=== PATIENT | female | born 1980 | race Hispanic/Latino ===

== ENCOUNTER 2018-01-05 08:44 | Day surgery (SDC) | payer OTHER, MEDICAID, SELFPAY ==
[2018-01-05] VITALS (17 sets, daily range): BP systolic 95–156; BP diastolic 36–99; PULSE 57–87; RESP 14–22; TEMP 36–37; O2SAT 94–100; BMI 37.5
--- NOTE | 2018-01-05 | PATH_ITS ---
[facility] Accession Number: [id number] . 01 Material submitted: . GALLBLADDER WITH CONTENTS . 02 Diagnosis: Gallbladder, Cholecystectomy: Chronic active cholecystitis with cholelithiasis. Two benign cystic duct lymph nodes. No evidence of dysplasia or malignancy. I/01/09/2018 . 02 Electronically signed: . Nan Sanches MD, Pathologist NPI- [id number] . 01 Gross description: . Received in formalin, labeled gallbladder with contents, is an intact gallbladder (length-14.2 cm, diameter-2.7 cm) with ansari-pink, smooth, shiny serosa and a patent cystic duct. Two possible lymph nodes (0.7 x 0.5 x 0.4 cm and 1.3 x 1.2 x 0.6 cm) are identified. The lumen contains brown, gelatinous material and multiple ansari-yellow and green, solid, firm, gritty calculi (6.6 x 1.8 x 1.8 cm in aggregate, ranging 1.8 x 1.5 x 1.3 cm - 2.8 x 2.7 x 2.4 cm) with ella crystalline cut surfaces. The mucosa is ansari, smooth and flat. The wall is up to 0.2 cm thick. No nodules, masses or lesions are identified. Section code: (A1) cystic duct resection margin and two serial sections from the body; (A2) two longitudinal sections from the fundus; (A3, A4) one bisected lymph node in each cassette. ([id number]) /MRV . 02 Pathologist provided ICD-10: K81.2 . 02 CPT . 638127 Performed at: [address] [id number] MD Randal Porter MD Phone: [phone] Performed at: 02 [facility] [id number] [place] [id number] MD Bryce Hayes MD Phone: [phone]
[2018-01-05] MEDS: HYDROMORPHONE 1 MG INJ IV ×2 (09:13→10:02)
[2018-01-05] MEDS: ONDANSETRON 4 MG/2 ML INJ IV ×3 (09:13→17:11)
[2018-01-05] MEDS: SODIUM CHLORIDE 0.9% 1,000 ML 1000 ML IV (09:15)
[2018-01-05 09:20] LABS: Bacteria Urine Few (2-10); Culture Indicated Urine Cult Not Indicated; Hyaline Casts Urine 0-1/LPF; Mucus Urine 1+ (Negative); RBC Urine 0-1/HPF (0-5/HPF); Squamous Epithelial Cell Urine 1-5 /HPF; WBC Urine 0-1/HPF (0-5/HPF)
[2018-01-05 09:21] LABS: Add Manual Diff / Slide Review NO; Basophils Percent Auto 0.5 % (0-2); Eosinophils Percent Auto 0.4 % (2-4); Hematocrit 43.4 % (36-46); Hemoglobin 14.3 g/dL (12.0-16.0); Lymphocytes Percent Auto 10.4 % (25-40); Mean Corpuscular HGB Conc 32.9 % (30-36); Mean Corpuscular Hemoglobin 26.1 PG (26-34); Mean Corpuscular Volume 79.3 fL (80-100); Monocytes Percent Auto 3.2 % (3-14); Neutrophils Absolute Auto 15100 /uL (3000-5900); Neutrophils Percent Auto 85.5 % (50-75); Platelet Count 399 X10^3/uL (150-400); Red Blood Cell Count 5.47 X10^6/uL (4.0-5.2); Red Cell Distribution Width 14.2 % (11.6-14.8); White Blood Cell Count 17.6 X10^3/uL (4.5-11.0)
--- NOTE | 2018-01-05 09:26 | DI.US.S_ITS ---
PROCEDURE: US ABDOMEN COMPLETE INDICATIONS: PAIN TECHNIQUE: Real-time scanning was performed of the abdominal and retroperitoneal organs, with image documentation. COMPARISON: [facility], CT, IVP (ABD & PEL WWO CONTRAST), 11/27/2013, 14:29. [facility], US, ABDOMEN COMPLETE, 09/29/2015, 7:36. FINDINGS: Liver: Liver is normal in size and diffusely increased echotexture. Gallbladder: There are gallstones. A 2.3 cm gallstone is lodged in the gallbladder neck. No gallbladder wall thickening, pericholecystic fluid or sonographic Hayes's sign. Biliary ducts: Intrahepatic bile ducts are non-dilated. Extrahepatic bile duct caliber measures 5.3 mm. Normal is 6-7 mm or less in diameter, or 10 mm or less post-cholecystectomy. Pancreas: Visualized portions of the pancreas are sonographically normal. Spleen: Spleen is normal in size and homogeneous in echotexture. Kidneys: Kidneys are normal in size and echotexture. Right kidney measures 10.6 cm long; left kidney measures 11.6 cm long. No hydronephrosis or nephrolithiasis. No solid masses. Aorta: Visualized aorta is normal in caliber at less than 3 cm. Iliacs: Proximal common iliac arteries are normal in caliber at less than 2.5 cm. IVC: Intrahepatic inferior vena cava is patent. Miscellaneous: No free abdominal fluid. IMPRESSION: 1. Cholelithiasis. A 2.3 cm gallstone is lodged in the gallbladder neck. No gallbladder wall thickening, pericholecystic fluid collection or sonographic Hayes's sign. 2. Diffusely increased hepatic echotexture. This finding is most likely secondary to hepatic fatty infiltration although other hepatocellular disease may have a similar appearance. Recommend clinical correlation. Dictated by: Nikita Green M.D. on 01/05/2018 at 10:28 Approved by: Nikita Green M.D. on 01/05/2018 at 11:01
[2018-01-05 09:28] LABS: INR 1.1 (0.9-1.3); Prothrombin Time 11.7 SECONDS (10.1-12.7)
[2018-01-05 09:31] LABS: PTT Partial Thromboplastin Tim 30 SECONDS (26.4-36.2)
[2018-01-05 09:33] LABS: Alanine Aminotransferase 36 IU/L (9-52); Albumin 4.7 g/dL (3.5-5.0); Albumin Globulin Ratio 1.3 (1.0-2.8); Alkaline Phosphatase 93 U/L (38-126); Aspartate Aminotransferase 23 IU/L (14-36); BUN Creatinine Ratio 13.3 (6-22); Bilirubin Total 0.6 mg/dL (0.2-1.3); Blood Urea Nitrogen 8 mg/dL (7-17); Calcium 9.8 mg/dL (8.4-10.2); Carbon Dioxide 25 mmol/L (22-32); Chloride 99 mmol/L (98-107); Estimated Glomerular Filt Rate > 60.0 mL/min (>60); Globulin 3.7 g/dL (1.7-4.1); Glucose 225 mg/dL (70-100); HEMOLYSIS < 15 (0-50); Lipase 66 U/L (23-300); Potassium 4.2 mmol/L (3.4-5.1); Sodium 137 mmol/L (137-145); Total Protein 8.4 g/dL (6.3-8.2)
--- NOTE | 2018-01-05 10:21 | ED_ITS ---
HPI - Abdominal Pain General Chief Complaint: Abdominal Pain Stated Complaint: ABDOMINAL PAIN RUNNING UP TO CHEST Time Seen by Provider: 01/05/18 08:48 History of Present Illness HPI narrative: HPI 37-year-old obese female presents for evaluation of epigastric and right upper quadrant pain that is been present since yesterday evening, a company by anorexia and mild nausea. Denies chest pain, shortness breath, dysuria, urinary frequency, vaginal discharge or discomfort, continues pass flatus and stool, denies prior abdominal surgeries, unable to identify any further provoking or relieving factors. No fevers or chills. M/S/F/SocHx notable for: please see HPI; remainder reviewed with patient and in chart. ROS: Negative constitutional, eye, cardiovascular, pulmonary, GI, , MSK, skin , neurologic, psychiatric, endocrine unless noted in the HPI. Exam HR 74, BP 139/89, RR 14, T 97.7 ?F, SaO2 99 % on room air. Gen: pleasant, nontoxic-appearing, resting in mild discomfort, ambulatory with a normal narrow based nonantalgic gait. HEENT: NC, AT, PEERL, EOMI. Resp: Clear to auscultation bilaterally, normal work of breathing. Card: Regular rate and rhythm with no murmurs rubs or gallops, extremities warm and well perfused. GI: ND, moderate RUQ TTP, mild epigastric TTP, remainder of abdomen non-tender to palpation, positive Hayes's sign, no rebound or guarding. : no suprapubic tenderness to palpation. MSK: No visible deformities, strength and tone WNL. Skin: Normal color with no visible lesions. Neuro: AO x 3, no facial asymmetry, vision and hearing WNL. Psych: Mood and affect appropriate. Labs / Imaging (pertinent): WBC 17.6, Hb 14.3, Na 137, K 4.2, total bilirubin 0.6, AST 23, ALT 36, ALP 93, lipase 66. US RUQ: cholelithiasis without evidence of cholecystitis. Radiologist read pending. MDM Previous chart, nursing note, and vitals reviewed. A: 37-year-old obese female presents for evaluation of epigastric and right upper quadrant pain that is been present since yesterday evening, a company by anorexia and mild nausea. DDx: Biliary disease (cholecystitis, cholelithiasis, choledocholithiasis, biliary colic), pancreatitis, appendicitis, ureterolithiasis, peptic ulcer disease, GERD, ACS, PE. Evaluation: patient with elevated white blood cell count, normal bilirubin, alkaline phosphatase, normal lipase, and normal liver enzymes. Ultrasound concerning for cholelithiasis without clear evidence of cholecystitis ( radiologist report pending). Discuss case with the general surgeon occupational safety and health manager, Dr. Adamson, patient admitted for further care. CORRESPONDENCE SECTION SUPERVISOR requested and ordered, no further interventions requested. ED Course: 1 L NS, Zofran, and 1mg hydromorphone given for symptom control. Patient required repeat dose of 1mg hydromorphone and Zofran for symptom control. Impression: cholelithiasis, leukocytosis. Related Data Home Medications Medication Instructions Recorded Confirmed buspirone 10 mg PO BID PRN 01/05/18 01/05/18 glipizide 10 mg PO BID 01/05/18 01/05/18 liraglutide [Victoza 2-Heri] 1.2 mg SUB-Q DAILY 01/05/18 01/05/18 Previous Rx's Medication Instructions Recorded paroxetine HCl [Paxil] 40 mg PO QDAY #30 tab 01/25/16 Allergies Allergy/AdvReac Type Severity Reaction Status Date / Time meperidine [From DEMEROL] AdvReac Unknown SEVERE Verified 01/05/18 08:51 NAUSEA PFSH Surgical History Status post delivery Social History Smoking Status: Never smoker Exam Initial Vital Signs Initial Vital Signs: Vital Signs Temperature 97.7 F 01/05/18 08:49 Pulse Rate 74 01/05/18 08:49 Respiratory Rate 14 01/05/18 08:49 Blood Pressure 139/89 H 01/05/18 08:49 Pulse Oximetry 99 01/05/18 08:49 Course Orders Ordered: ED Orders 01/05/18 09:00 Complete Blood Count AUTO DIFF Stat Comprehensive Metabolic Panel Stat Lipase Stat Partial Thromboplastin Time Stat Prothrombin Time INR Stat 01/05/18 09:02 Urine Microscopic Stat 01/05/18 09:26 US abdomen complete Stat Discontinued Medications Hydromorphone HCl (Dilaudid) 1 mg IV NOW ONE Stop: 01/05/18 09:03 Last Admin: 01/05/18 09:13 Dose: 1 mg Hydromorphone HCl (Dilaudid) 1 mg IV NOW ONE Stop: 01/05/18 10:02 Last Admin: 01/05/18 10:02 Dose: 1 mg Hydromorphone HCl (Dilaudid) 1 mg IV NOW ONE Stop: 01/05/18 10:09 Sodium Chloride (Normal Saline 0.9%) 1,000 mls @ 1,000 mls/hr IV BOLUS ONE Stop: 01/05/18 10:13 Last Admin: 01/05/18 09:15 Dose: 1,000 mls/hr Ondansetron HCl (Zofran) 4 mg IV NOW ONE Stop: 01/05/18 09:03 Last Admin: 01/05/18 09:13 Dose: 4 mg Ondansetron HCl (Zofran) 4 mg IV NOW ONE Stop: 01/05/18 10:06 Last Admin: 01/05/18 10:05 Dose: 4 mg Ondansetron HCl (Zofran) 4 mg IV NOW ONE Stop: 01/05/18 10:09 Vital Signs - 8 hr 01/05/18 08:49 01/05/18 10:07 Temperature 97.7 F Pulse Rate 74 70 Respiratory Rate 14 14 Blood Pressure 139/89 H Blood Pressure [Left Arm] 146/99 H Pulse Oximetry 99 100 MDM - Abdominal Pain Lab Data Result diagrams: 01/05/18 09:00 01/05/18 09:00 Lab Results 01/05/18 01/05/18 01/05/18 Range/Units 09:00 09:00 09:00 WBC 17.6 H (4.5-11.0) X10^3/uL RBC 5.47 H (4.0-5.2) X10^6/uL Hgb 14.3 (12.0-16.0) g/dL Hct 43.4 (36-46) % MCV 79.3 L (80-100) fL MCH 26.1 (26-34) PG MCHC 32.9 (30-36) % RDW 14.2 (11.6-14.8) % Plt Count 399 (150-400) X10^3/uL Neut % (Auto) 85.5 H (50-75) % Lymph % (Auto) 10.4 L (25-40) % [place] % (Auto) 3.2 (3-14) % Eos % (Auto) 0.4 L (2-4) % Baso % (Auto) 0.5 (0-2) % Neut # (Auto) 19109 H (2367-6770) /uL PT 11.7 (10.1-12.7) SECONDS INR 1.1 (0.9-1.3) APTT 30 (26.4-36.2) SECONDS Sodium 137 (137-145) mmol/L Potassium 4.2 (3.4-5.1) mmol/L Chloride 99 (98-107) mmol/L Carbon Dioxide 25 (22-32) mmol/L BUN 8 (7-17) mg/dL Creatinine 0.60 (0.52-1.04) mg/dL Estimated GFR > 60.0 (>60) mL/min BUN/Creatinine Ratio 13.3 (6-22) Glucose 225 H (70-100) mg/dL Calcium 9.8 (8.4-10.2) mg/dL Total Bilirubin 0.6 (0.2-1.3) mg/dL AST 23 (14-36) IU/L ALT 36 (9-52) IU/L Alkaline Phosphatase 93 (38-126) U/L Total Protein 8.4 H (6.3-8.2) g/dL Albumin 4.7 (3.5-5.0) g/dL Globulin 3.7 (1.7-4.1) g/dL Albumin/Globulin Ratio 1.3 (1.0-2.8) Lipase 66 (23-300) U/L Urine RBC (0-5/HPF) Urine WBC (0-5/HPF) Ur Squamous Epith Cells Urine Bacteria (None) Hyaline Casts (None) Urine Mucus (Negative) Ur Culture Indicated? Micro UA Comment 01/05/18 Range/Units 09:02 WBC (4.5-11.0) X10^3/uL RBC (4.0-5.2) X10^6/uL Hgb (12.0-16.0) g/dL Hct (36-46) % MCV (80-100) fL MCH (26-34) PG MCHC (30-36) % RDW (11.6-14.8) % Plt Count (150-400) X10^3/uL Neut % (Auto) (50-75) % Lymph % (Auto) (25-40) % [place] % (Auto) (3-14) % Eos % (Auto) (2-4) % Baso % (Auto) (0-2) % Neut # (Auto) (2242-1175) /uL PT (10.1-12.7) SECONDS INR (0.9-1.3) APTT (26.4-36.2) SECONDS Sodium (137-145) mmol/L Potassium (3.4-5.1) mmol/L Chloride (98-107) mmol/L Carbon Dioxide (22-32) mmol/L BUN (7-17) mg/dL Creatinine (0.52-1.04) mg/dL Estimated GFR (>60) mL/min BUN/Creatinine Ratio (6-22) Glucose (70-100) mg/dL Calcium (8.4-10.2) mg/dL Total Bilirubin (0.2-1.3) mg/dL AST (14-36) IU/L ALT (9-52) IU/L Alkaline Phosphatase (38-126) U/L Total Protein (6.3-8.2) g/dL Albumin (3.5-5.0) g/dL Globulin (1.7-4.1) g/dL Albumin/Globulin Ratio (1.0-2.8) Lipase (23-300) U/L Urine RBC 0-1/hpf (0-5/HPF) Urine WBC 0-1/hpf (0-5/HPF) Ur Squamous Epith Cells 1-5 /hpf Urine Bacteria Few (2-10) H (None) Hyaline Casts 0-1/lpf (None) Urine Mucus 1+ H (Negative) Ur Culture Indicated? Cult not indicated Micro UA Comment Not Reportable Point of care testing: Point of Care Testing Test Results Negative Urine Dip Bedside Urine Glucose Negative Bedside Urine Bilirubin - Negative Bedside Urine Ketone + 15 Urine Specific [place] 1.020 Bedside Urine Occult Blood - Negative Bedside Urine pH 7.0 Bedside Urine Protein + 30 Bedside Urine Urobilinogen - Negative Bedside Urine Nitrite - Negative Bedside Urine Leukocytes - Negative Esterase Discharge Plan Departure Prescriptions: No Action paroxetine HCl [Paxil] 40 MG tablet 40 mg PO QDAY Qty: 30 RF: 0 buspirone 10 mg tablet 10 mg PO BID PRN (Reason: Anxiety) RF: 0 liraglutide [Victoza 2-Heri] 0.6 mg/0.1 mL (18 mg/3 mL) pen injector 1.2 mg Sub-Q DAILY RF: 0 glipizide 10 mg tablet 10 mg PO BID RF: 0
--- NOTE | 2018-01-05 11:23 | PC.NURSE ---
Day shift: Arrived on unit from ED at approx 1050. Presented to be in pain and uncomfortable. Set up CREAM HAULER first thing as SECONDARY SCHOOL PRINCIPAL and other RN got Pt settled. After CREAM HAULER started Pt more relaxed and comfortable. Pt states that pain is well controlled. Oriented to room and call light. Call light in reach. Questions answered. Will continue to monitor. VS ok. RA 99%. Denies any chest pain.
[2018-01-05] MEDS: SODIUM CHLORIDE 0.9% 1,000 ML 100 ML IV (12:07)
--- NOTE | 2018-01-05 12:51 | PC.NURSE ---
Day shift: Call from Dr Adamson as follows: Make Pt strict NPO now and surgery likely today at 1500. Call light in reach.
[2018-01-05] MEDS: LORazepam 2 MG/ML SYRINGE 1 MG IV (14:10)
[2018-01-05] MEDS: HYDROMORPHONE PCA 6 MG/30 ML PCA.VIAL IV (14:12)
--- NOTE | 2018-01-05 14:14 | PM.HP.1 ---
History of Present Illness Date Patient Seen: 01/05/18 Time Patient Seen: 14:14 Chief complaint: ABDOMINAL PAIN RUNNING UP TO CHEST Narrative: Pleasant and uncomfortable 37-year-old lady who presented to the emergency room with a little less than 24 hr of worsening right upper quadrant abdominal pain. This has been accompanied by anorexia and nausea. The patient denies any yellowing skin or fever. She continues to pass flatus and have stool. She has had some episodes of right upper quadrant pain in the past but nothing this severe. She reports that she has a nearly daily diarrhea related to heard antidiabetic medications. Patient History Surgical History Status post delivery Family & Social History Family History: Reviewed 01/05/18 by Georgia Adamson MD Social History: household members family Safety & Behavioral: Feels Safe in Current Yes Environment Been Physically Hurt or No Threatened By a Person Suicidal Ideation Description None Suicide Plan Description No Plan Tobacco & Substance use: Smoking Status Never smoker alcohol intake frequency 0-2 drinks per day Substance Use Type marijuana Meds Home Medications Medication Instructions Recorded Confirmed Type paroxetine HCl [Paxil] 40 mg PO QDAY #30 tab 01/25/16 01/05/18 Rx buspirone 10 mg PO BID PRN 01/05/18 01/05/18 History glipizide 10 mg PO BID 01/05/18 01/05/18 History liraglutide [Victoza 2-Heri] 1.2 mg SUB-Q DAILY 01/05/18 01/05/18 History Allergies Allergy/AdvReac Type Severity Reaction Status Date / Time meperidine [From DEMEROL] AdvReac Unknown SEVERE Verified 01/05/18 08:51 NAUSEA Review of Systems Review of Systems She complains of anxiety and beyond that the remainder of the 13 system review is negative with the exception of what has already been mentioned in the history of present illness Exam Vital Signs (past 8 hours): - 01/05/18 08:49 01/05/18 10:07 01/05/18 10:30 Temperature 97.7 F Pulse Rate 74 70 62 Respiratory Rate 14 14 Blood Pressure 139/89 H Blood Pressure [Left Arm] 146/99 H 149/88 H Pulse Oximetry 99 100 99 01/05/18 11:00 Temperature 97.7 F Pulse Rate 66 Respiratory Rate 16 Blood Pressure 140/77 H Blood Pressure [Left Arm] Pulse Oximetry 100 Oxygen Delivery Method Room Air Narrative Exam Narrative: Pleasant an uncomfortable appearing lady who is in obvious physical distress. HEENT: Normocephalic and atraumatic, pupils equal round reactive to light accommodation with anicteric sclera Lungs: Clear to auscultation bilaterally Heart: Regular rate and rhythm without murmur rub or gallop Abdomen: Soft, For Family tender to palpation in the right upper quadrant with voluntary guarding and some rebound. Extremities: Warm and well perfused without gross evidence of ischemia or tissue loss. Objective Labs Result Diagrams: 01/05/18 09:00 01/05/18 09:00 Labs: Laboratory Results - last 24 hr 01/05/18 01/05/18 01/05/18 09:00 09:00 09:00 WBC 17.6 H RBC 5.47 H Hgb 14.3 Hct 43.4 MCV 79.3 L MCH 26.1 MCHC 32.9 RDW 14.2 Plt Count 399 Neut % (Auto) 85.5 H Lymph % (Auto) 10.4 L [place] % (Auto) 3.2 Eos % (Auto) 0.4 L Baso % (Auto) 0.5 Neut # (Auto) 01570 H PT 11.7 INR 1.1 APTT 30 Sodium 137 Potassium 4.2 Chloride 99 Carbon Dioxide 25 BUN 8 Creatinine 0.60 Estimated GFR > 60.0 BUN/Creatinine Ratio 13.3 Glucose 225 H Calcium 9.8 Total Bilirubin 0.6 AST 23 ALT 36 Alkaline Phosphatase 93 Total Protein 8.4 H Albumin 4.7 Globulin 3.7 Albumin/Globulin Ratio 1.3 Lipase 66 Urine RBC Urine WBC Ur Squamous Epith Cells Urine Bacteria Hyaline Casts Urine Mucus Ur Culture Indicated? Micro UA Comment 01/05/18 09:02 WBC RBC Hgb Hct MCV MCH MCHC RDW Plt Count Neut % (Auto) Lymph % (Auto) [place] % (Auto) Eos % (Auto) Baso % (Auto) Neut # (Auto) PT INR APTT Sodium Potassium Chloride Carbon Dioxide BUN Creatinine Estimated GFR BUN/Creatinine Ratio Glucose Calcium Total Bilirubin AST ALT Alkaline Phosphatase Total Protein Albumin Globulin Albumin/Globulin Ratio Lipase Urine RBC 0-1/hpf Urine WBC 0-1/hpf Ur Squamous Epith Cells 1-5 /hpf Urine Bacteria Few (2-10) H Hyaline Casts 0-1/lpf Urine Mucus 1+ H Ur Culture Indicated? Cult not indicated Micro UA Comment Not Reportable [address] [address] Ultrasound Report Signed Patient: Lalitha Renteria MR#: [id number] : 1980 Acct:[id number] Age/Sex: 37 / F Date of Service: 01/05/18 Loc: 209-1 Accession Number: [id number] Procedure: US abdomen complete Ordering Provider: Rafael Herrera M.D. PROCEDURE: US ABDOMEN COMPLETE INDICATIONS: PAIN TECHNIQUE: Real-time scanning was performed of the abdominal and retroperitoneal organs, with image documentation. COMPARISON: [facility], CT, IVP (ABD & PEL WWO CONTRAST), 11/27/2013, 14:29. [facility], [place], ABDOMEN COMPLETE, 09/29/2015, 7:36. FINDINGS: Liver: Liver is normal in size and diffusely increased echotexture. Gallbladder: There are gallstones. A 2.3 cm gallstone is lodged in the gallbladder neck. No gallbladder wall thickening, pericholecystic fluid or sonographic Hayes's sign. Biliary ducts: Intrahepatic bile ducts are non-dilated. Extrahepatic bile duct caliber measures 5.3 mm. Normal is 6-7 mm or less in diameter, or 10 mm or less post-cholecystectomy. Pancreas: Visualized portions of the pancreas are sonographically normal. Spleen: Spleen is normal in size and homogeneous in echotexture. Kidneys: Kidneys are normal in size and echotexture. Right kidney measures 10.6 cm long; left kidney measures 11.6 cm long. No hydronephrosis or nephrolithiasis. No solid masses. Aorta: Visualized aorta is normal in caliber at less than 3 cm. Iliacs: Proximal common iliac arteries are normal in caliber at less than 2.5 cm. IVC: Intrahepatic inferior vena cava is patent. Miscellaneous: No free abdominal fluid. IMPRESSION: 1. Cholelithiasis. A 2.3 cm gallstone is lodged in the gallbladder neck. No gallbladder wall thickening, pericholecystic fluid collection or sonographic Hayes's sign. 2. Diffusely increased hepatic echotexture. This finding is most likely secondary to hepatic fatty infiltration although other hepatocellular disease may have a similar appearance. Recommend clinical correlation. Dictated by: Nikita Green M.D. on 01/05/2018 at 10:28 Approved by: Nikita Green M.D. on 01/05/2018 at 11:01 Assessment & Plan Plan: Assessment/Plan Narrative: Cholelithiasis and early acute cholecystitis in the setting of a pleasant 37-year-old lady with type 2 diabetes. We discussed the risks and benefits of laparoscopic cholecystectomy and patient expressed desire to have the procedure. Quality VTE Deep Vein Thrombosis/Pulmonary Embolism Present on Admission: No
--- NOTE | 2018-01-05 15:06 | PC.NURSE ---
Day shift: Left unit for procedure at approx 1510 in AC bed w/ surgery personal.
[2018-01-05] MEDS: AMPICILLIN/SULBACTAM 3 GM 3 GM in SODIUM CHLORIDE 0.9% 100 ML IV ×2 (15:40→18:48)
--- NOTE | 2018-01-05 16:15 | SUR.OPER ---
Supine on padded OR bed, head on pillow, safety belt at thigh, left arm padded and tucked at side. Right arm secured on padded arm oard <90 degrees abduction. Legs uncrossed. Padded footboard in place. Tape over blanket to secure lower legs.
[2018-01-05] MEDS: LIDOCAINE 1% W/EPI INJ 20 ML INJ (16:25)
[2018-01-05] MEDS: BUPIVACAINE 0.5% (PF) VIAL 30 ML INJ (16:25)
[2018-01-05] MEDS: LACTATED RINGERS 1,000 ML 42 ML IV (16:29)
[2018-01-05] MEDS: HYDROMORPHONE 2 MG INJ 0.5 MG IV ×3 (17:09→17:20)
[2018-01-05] MEDS: METOCLOPRAMIDE 10 MG/2 ML INJ IV (17:14)
--- NOTE | 2018-01-05 18:00 | PM.OP.1 ---
Operative Date/Time/Diagnoses Date of procedure: 01/05/18 Time of procedure: 18:01 Pre-op diagnosis: Acute cholecystitis and cholelithiasis Post-op diagnosis: same Procedure & Clinicians Procedure: Laparoscopic cholecystectomy Same procedure as scheduled: Yes Surgeon: Georgia Adamson Click Yes if Unassisted: Yes Anesthesia Type: General (Ahsaei) Operative Notes Findings: Acute cholecystitis and hydrops of the gallbladder Closure Type: primary Specimen(s): other (Gallbladder in formalin to pathology) Estimated Blood Loss (mL): 50 Procedure in detail: After obtaining informed consent, the patient was brought to the operating room and placed in the supine position on the operating table. Following successful induction of general endotracheal anesthesia, appropriate padding of all bony prominences, and placement of appropriate monitors, the abdomen was prepped and draped in a standard surgical fashion. A timeout was held per WIOAP protocol. Following infiltration with local anesthetic to create a field block, an incision was created superior to the umbilicus and carried down through the skin and subcutaneous tissue to reveal the fascia below. 2-0 Vicryl retention sutures are placed on either side of the midline and the abdomen was entered under direct vision using a 15 blade scalpel. A 10 mm blunt trocar was placed in the abdominal cavity and it was insufflated to 15 mm of Hg pressure. The patient was placed in reverse Trendelenburg position with the left side rotated toward the floor. A second 5 mm trocar was placed in the midepigastrium and 2 more in the right upper quadrant, again after infiltration with local anesthetic and under direct vision with the camera. The gallbladder was grasped in the fundus and elevated up over the liver. This revealed the cholecysto-hepatoduodenal ligament. The cystic duct and artery were carefully identified with gentle dissection. As we were able to clearly see the structures as well as the junction with the common duct; we elected not to perform a cholangiogram. 3 clips were placed proximally on the cystic duct and one distally. The duct was divided between these clips. 2 clips were placed proximally on the cystic artery and one distally. The artery was divided between these clips. The gallbladder was then liberated from its bed in the liver using Bovie cautery. It was placed in an Endoscopic bag and removed via the umbilical port. The camera was returned to the abdominal cavity and the operative site examined carefully. Hemostasis was obtained with cautery. The abdomen was irrigated copiously with warm saline solution and then aspirated free of all particulate matter and fluid. Trochars were then removed under direct vision and the abdomen desufflated by giving the patient a Valsalva maneuver. The umbilical incision was closed with interrupted Vicryl suture and Monocryl sutures were placed in the skin. The remaining skin incisions were closed with Monocryl suture. All sponge, needle, and instrument counts were correct at the conclusion of the case. The patient was allowed to awaken from anesthesia without difficulty and taken to the post anesthesia care unit in good condition. Complications: none Condition: stable Disposition: PACU Plan for aftercare: 1. Return to acute care for continued convalescence 2. Continue antibiotics
--- NOTE | 2018-01-05 18:31 | PC.NURSE ---
Federica shift note: Patient return to AC from recovery S/P lap Cholecystectomy in stable condition. Patient awake, alert and talkative. Abdominal incisions x 4 to right upper abdomen (2), umbilicus, and above umbilicus. Well approximated secured with Dermabond. BS hypoactive, abdomen round. No c/o nausea or vomiting. Tolerating PO intake. VSS and afebrile upon return. Family at bedside providing supportive care. SCD in place. Call light within reach, updated regarding plan of care.
[2018-01-05] MEDS: LACTATED RINGERS 1,000 ML 100 ML IV (18:46)
[2018-01-05] MEDS: OXYCODONE/ACETAMINOPHEN 5/325 TABLET 1 TAB PO (21:14)
[2018-01-05] MEDS: glipiZIDE 5 MG TABLET 10 MG PO (21:14)
[2018-01-06] MEDS: AMPICILLIN/SULBACTAM 3 GM 3 GM in SODIUM CHLORIDE 0.9% 100 ML IV ×3 (02:18→17:48)
[2018-01-06] MEDS: OXYCODONE/ACETAMINOPHEN 5/325 TABLET 1 TAB PO ×3 (02:26→10:20)
[2018-01-06 06:08] LABS: Add Manual Diff / Slide Review NO; Hematocrit 34.5 % (36-46); Hemoglobin 11.3 g/dL (12.0-16.0); Lymphocytes Percent Auto 21.2 % (25-40); Mean Corpuscular HGB Conc 32.6 % (30-36); Mean Corpuscular Hemoglobin 25.8 PG (26-34); Mean Corpuscular Volume 79.2 fL (80-100); Monocytes Percent Auto 7.4 % (3-14); Neutrophils Absolute Auto 8600 /uL (3000-5900); Neutrophils Percent Auto 69.4 % (50-75); Platelet Count 309 X10^3/uL (150-400); Red Blood Cell Count 4.36 X10^6/uL (4.0-5.2); White Blood Cell Count 12.4 X10^3/uL (4.5-11.0)
[2018-01-06 06:19] LABS: Alanine Aminotransferase 77 IU/L (9-52); Albumin 3.3 g/dL (3.5-5.0); Albumin Globulin Ratio 1.2 (1.0-2.8); Alkaline Phosphatase 61 U/L (38-126); Aspartate Aminotransferase 64 IU/L (14-36); BUN Creatinine Ratio 11.4 (6-22); Bilirubin Total 0.4 mg/dL (0.2-1.3); Blood Urea Nitrogen 8 mg/dL (7-17); Calcium 8.6 mg/dL (8.4-10.2); Carbon Dioxide 28 mmol/L (22-32); Chloride 101 mmol/L (98-107); Estimated Glomerular Filt Rate > 60.0 mL/min (>60); Globulin 2.8 g/dL (1.7-4.1); Glucose 136 mg/dL (70-100); HEMOLYSIS < 15 (0-50); Potassium 3.9 mmol/L (3.4-5.1); Sodium 136 mmol/L (137-145); Total Protein 6.1 g/dL (6.3-8.2)
[2018-01-06 06:23] VITALS: BP 103/59; PULSE 73; RESP 16; TEMP 36.9; O2SAT 98
[2018-01-06 07:20] VITALS: BP 107/70; PULSE 85; RESP 16; TEMP 36.7; O2SAT 98
[2018-01-06] MEDS: glipiZIDE 5 MG TABLET 10 MG PO ×2 (08:04→17:12)
[2018-01-06] MEDS: PARoxetine 20 MG TABLET 40 MG PO (08:05)
[2018-01-06] MEDS: DOCUSATE 100 MG CAPSULE PO (08:05)
[2018-01-06] MEDS: BUSPIRONE 5 MG TABLET 10 MG PO (10:38)
--- NOTE | 2018-01-06 12:08 | PC.NURSE ---
Day shift: Called Dr Adamson and left message about Pt having pain and nausea at approx 1100 today. Awaiting call back as this is written.
[2018-01-06 12:24] VITALS: BP 127/81; PULSE 66; RESP 16; TEMP 36.8; O2SAT 97
--- NOTE | 2018-01-06 15:07 | PM.PN.1 ---
Subjective Date Patient Seen: 01/06/18 Time Patient Seen: 15:07 Interval history: Lalitha is in good spirits today. She had a pretty good morning and then got a dose of Percocet that made her very nauseated. She reports she still feels better than she did prior to surgery. Exam Vital Signs (past 8 hours): - 01/06/18 07:20 01/06/18 12:24 Temperature 98.1 F 98.3 F Pulse Rate 85 66 Respiratory Rate 16 16 Blood Pressure 107/70 127/81 H Pulse Oximetry 98 97 Oxygen Delivery Method Room Air Narrative Exam Narrative: Abdomen is soft, appropriately tender to palpation, active bowel sounds. Wounds are clean and well approximated. Objective Labs Result Diagrams: 01/06/18 05:47 01/06/18 05:47 Labs: Laboratory Results - last 24 hr 01/06/18 01/06/18 05:47 05:47 WBC 12.4 H RBC 4.36 Hgb 11.3 L Hct 34.5 L MCV 79.2 L MCH 25.8 L MCHC 32.6 RDW 14.0 Plt Count 309 Neut % (Auto) 69.4 Lymph % (Auto) 21.2 L Irion % (Auto) 7.4 Eos % (Auto) 1.0 L Baso % (Auto) 1.0 Neut # (Auto) 8600 H Sodium 136 L Potassium 3.9 Chloride 101 Carbon Dioxide 28 BUN 8 Creatinine 0.70 Estimated GFR > 60.0 BUN/Creatinine Ratio 11.4 Glucose 136 H Calcium 8.6 Total Bilirubin 0.4 AST 64 H ALT 77 H Alkaline Phosphatase 61 Total Protein 6.1 L Albumin 3.3 L Globulin 2.8 Albumin/Globulin Ratio 1.2 Assessment & Plan Plan: Assessment/Plan Narrative: Postop day 1 after laparoscopic cholecystectomy for acute necrotizing cholecystitis and cholelithiasis. Lalitha needs to stay 1 more night for IV antibiotic therapy. I will switch her to p.o. Dilaudid and discontinue Percocet. Hopefully this will help with the nausea. We will plan to go home in the morning as long as she continues to improve Quality VTE Deep Vein Thrombosis/Pulmonary Embolism Present on Admission: No
--- NOTE | 2018-01-06 15:34 | CM.DANOTE ---
DCP:Case received, EMR reviewed, put name of certified financial planner on patient's board. DCP template completed with information currently available. Patient is a 37 year old female who was admitted yesterday morning to care of the hospitalist team. PCP: Dr. Marks. Payer: confirmed: [facility] [place]/Medicaid. Patient came to ER with pain in right upper quadrant area. Carries diagnosis of Acute Cholecystitis. Patient had surgery yesterday. Lives at home with family, and is employed at [employer]. P: DCP to plan and assess. May be going home tomorrow. Di [place]o RN/Coding Spec
[2018-01-06] MEDS: HYDROMORPHONE 2 MG TABLET PO ×2 (15:59→20:26)
[2018-01-06 16:34] VITALS: BP 129/74; PULSE 62; RESP 16; TEMP 36.3; O2SAT 96
[2018-01-06 20:00] VITALS: BP 116/68; PULSE 64; RESP 16; TEMP 36.6; O2SAT 96
[2018-01-07 02:09] VITALS: BP 101/56; PULSE 72; RESP 16; TEMP 36.8; O2SAT 96
[2018-01-07] MEDS: HYDROMORPHONE 2 MG TABLET PO ×2 (02:12→07:55)
[2018-01-07] MEDS: AMPICILLIN/SULBACTAM 3 GM 3 GM in SODIUM CHLORIDE 0.9% 100 ML IV ×2 (02:13→11:02)
[2018-01-07] MEDS: glipiZIDE 5 MG TABLET 10 MG PO (08:00)
[2018-01-07] MEDS: PARoxetine 20 MG TABLET 40 MG PO (08:00)
[2018-01-07] MEDS: DOCUSATE 100 MG CAPSULE PO (08:01)
[2018-01-07 09:25] VITALS: BP 134/86; PULSE 66; RESP 16; TEMP 36.6; O2SAT 98
--- NOTE | 2018-01-07 11:57 | PM.DS.1 ---
History of Present Illness Chief complaint: ABDOMINAL PAIN RUNNING UP TO CHEST Narrative: Pleasant and uncomfortable 37-year-old lady who presented to the emergency room with a little less than 24 hr of worsening right upper quadrant abdominal pain. This has been accompanied by anorexia and nausea. The patient denies any yellowing skin or fever. She continues to pass flatus and have stool. She has had some episodes of right upper quadrant pain in the past but nothing this severe. She reports that she has a nearly daily diarrhea related to her antidiabetic medications. Discharge Providers Date of admission: 01/05/18 10:40 Primary care physician: Ant Marks MD Discharge provider: Georgia Adamson MD Summary Discharge Diagnosis: Acute cholecystitis and cholelithiasis Hospital Course: The patient was admitted and taken to the operating room on the same day for laparoscopic cholecystectomy. At the time of operation, she was noted to have acute cholecystitis with hydrops of the gallbladder. She was returned to the acute care floor postoperatively and had an uneventful recovery. Today, she is tolerating a general diet, walking unassisted, and her pain is well controlled with oral hydromorphone. She is discharged to home in the care of her family. She is not to return to work until after her follow-up appointment. Status at Discharge Cognitive/behavioral status at discharge: Normal Functional status at discharge: independent ambulation Overall status at discharge: patient is progressing back to baseline Time Spent with Patient Less than 30 minutes Exam Vital Signs (past 8 hours): - 01/07/18 09:25 Temperature 97.8 F Pulse Rate 66 Respiratory Rate 16 Blood Pressure 134/86 H Pulse Oximetry 98 Oxygen Delivery Method Room Air Objective Labs Result Diagrams: 01/06/18 05:47 01/06/18 05:47 Discharge Plan Discharge Plan Patient Disposition: Home, Self-Care Provider Discharge Instructions Diet: Carb-consistent/Diabetic Activity: Do not lift more than 10 pounds for at least 3 weeks. You may shower as desired. Do not soak the incisions in water for at least 2 weeks. Cold/Heat Therapy: Apply ice to the incisions as often as tolerated for at least 72 hours. This will help with pain and swelling. Wound Care Report to your healthcare provider any signs of infection, such as:: chills, fever, night sweats and increased pain Discharge Data Primary Care Provider: Ant Marks Attending Provider: Georgia Adamson Admit Date/Time: 01/05/18 10:40 Quality VTE Deep Vein Thrombosis/Pulmonary Embolism Present on Admission: No
--- NOTE | 2018-01-07 12:35 | CM.DPC ---
DCP Cont: Patient is to be discharged home today, instructions given regarding pain management and incision care. Has support of family. P: Patient discharged home today, with the support of family. 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
--- NOTE | 2018-01-07 12:42 | PC.NURSE ---
Discharge Pt states pain controlled with PO dilaudid. Up independently in room and hallways. PIV removed prior to d/c. D/c instructions provided to pt. Notified to contact MD for any questions/concerns as well as for f/u apt in 2 weeks. Pt took all belongings with her including her Victoza pen. pt allowed opportunity to answer questions about d/c and they were all answered to her satisfaction.
== END 2018-01-07 12:40 | disposition home or self-care (01) ==
LOC: ED 10:22 → AC 10:54 → ED 01-07 13:13 → OR 01-07 13:17 → AC 01-07 13:18
PROVIDERS: Emergency Provider Emergency Medicine; Family Provider Family Medicine; PCP Family Medicine; Visit Provider Surgery
PROC: 0FT44ZZ Resection of Gallbladder, Percutaneous Endoscopic Approach (ICD-10-PCS; CPT 47562; principal; 2018-01-05 16:00)
DX: R10.11 Right upper quadrant pain (principal); K80.00 Calculus of gallbladder with acute cholecystitis without obstruction; K82.1 Hydrops of gallbladder
CPT/HCPCS: 47562; 36415; 36591; 76700; 80053; 81003; 81015; 81025; 82962; 83690; 85025; 85610; 85730; 88305; 99220; 99283; J0295; J0330; J1170; J2060; J2405; J2704; J2765; J3010

== ENCOUNTER 2018-09-06 07:26 | Day surgery (SDC) | payer OTHER, MEDICAID, SELFPAY ==
[2018-07-17 10:44] VITALS: BMI 37.5
[2018-08-25 11:56] VITALS: BMI 36.8
[2018-09-06] VITALS (11 sets, daily range): BP systolic 113–137; BP diastolic 69–88; PULSE 76–85; RESP 12–20; TEMP 36–36.5; O2SAT 92–98; BMI 36.1
[2018-09-06] MEDS: LACTATED RINGERS 1,000 ML 42 ML IV (08:30)
[2018-09-06] MEDS: INSULIN REGULAR 100 UNIT/ML 3 ML VIAL SUBCUT (09:08)
[2018-09-06] MEDS: CEFAZOLIN 2 GM/100 ML FROZ.PIGGY IV (09:23)
--- NOTE | 2018-09-06 09:35 | SUR.OPER ---
Supine on padded OR bed, head on pillow, arms secured on padded arm boards at <90 degrees abduction, legs uncrossed, safety belt at thigh, tape over blanket over lower legs.
[2018-09-06] MEDS: LIDOCAINE 1% W/EPI INJ 20 ML INJ (09:46)
[2018-09-06] MEDS: BUPIVACAINE 0.5% (PF) VIAL 30 ML INJ (09:46)
[2018-09-06] MEDS: CEFAZOLIN 1 GM VIAL IV (10:00)
--- NOTE | 2018-09-06 10:20 | PM.PREOP ---
Pre-operative Note Interval Note History & Physical reviewed/Exam performed by Physician: Yes Changes to H&P: No
--- NOTE | 2018-09-06 10:20 | PM.OP.1 ---
Operative Date/Time/Diagnoses Date of procedure: 09/06/18 Time of procedure: 10:20 Pre-op diagnosis: Incisional Hernia Post-op diagnosis: same Procedure & Clinicians Procedure: Incisional hernia repair with Prolene onlay patch Same procedure as scheduled: Yes Indications: Incisional hernia with pain and recurrent symptoms of bowel obstruction Surgeon: Georgia Adamson Anesthesia Type: General (Dr. Moon) Operative Notes Findings: 4 x 2 cm ventral defect between the umbilicus and the xiphoid process Closure Type: primary Prosthetic devices, grafts, tissues, transplants, or devices: 5 x 2 cm when Prolene onlay patch Estimated Blood Loss (mL): 10 Procedure in detail: After obtaining informed consent, the patient is brought to the operating room and placed in a supine position on the operating table. Following successful induction of general endotracheal anesthesia, appropriate padding of all bony prominences, and placement of appropriate monitors, the abdomen is prepped and draped in the standard surgical fashion. A time-out was held per [facility] protocol. Following infiltration with local anesthetic to create a field block, the existing incision between the umbilicus and the xiphoid process was opened and carried through the skin and subcutaneous tissue. The hernia sac was identified and carefully dissected free from the fascial edges. Once the edges were carefully defined, we turned our attention to repair. It is notable that there were few intra-abdominal adhesions noted. I elected to repair the hernia directly with interrupted #1 Prolene sutures. Because there was significant tension due to the patient's body habitus, I chose to place an onlay patch of woven Prolene mesh. The mesh itself was 5 x 3 cm. It was soaked in Ancef containing solution and placed on to the fascial surface and sewn into place with interrupted #1 Prolene suture. The wound was checked for hemostasis and irrigated again with Ancef solution. it was closed in 2 layers with Vicryl and Monocryl and nylon suture. Exofen was applied to the skin. All sponge, needle, and instrument counts were correct at the conclusion of the case. The patient was allowed to awaken from anesthesia without difficulty and taken to the postanesthesia care unit in good condition. Complications: none Condition: stable Disposition: PACU Plan for aftercare: 1. Discharge to home 2. Wear binder at all times and follow up with my office in 2 weeks
[2018-09-06] MEDS: ONDANSETRON 4 MG/2 ML INJ IV (10:34)
[2018-09-06] MEDS: LORazepam 2 MG/ML SYRINGE 0.25 MG IV (10:47)
[2018-09-06] MEDS: fentaNYL 100 MCG/2 ML INJ 50 MCG IV (10:57)
--- NOTE | 2018-09-06 11:10 | SUR.PHASEI ---
1055 late entry: Was incontinent when she was coughing; pericare provided. HOB elevated, nausea subsided. Acknowledges that she has a little pain then stated it was 7/10 and that she has a high pain tolerance. No non-verbal indications of pain, remains calm and relaxed. 1057 Rx given as requested 1110 Unable to maintain RA sat >90% on room air, returned to 2lnp; states pain is now 4-5. Dozing intermittently.
--- NOTE | 2018-09-06 11:19 | SUR.PHASEI ---
Pain improved, tolerating ice chips well. Prepare to transfer
--- NOTE | 2018-09-06 11:33 | SUR.PHASEI ---
1128 to OPD, report given, continues to tolerate PO well, Appears calm, comfortable, voices appreciation for care.
== END 2018-09-06 12:18 | disposition home or self-care (01) ==
PROVIDERS: Family Provider Family Medicine; PCP Family Medicine; Visit Provider Surgery
PROC: (CPT 49560; principal; 2018-09-06 08:45)
DX: K43.2 Incisional hernia without obstruction or gangrene (principal); E11.9 Type 2 diabetes mellitus without complications
CPT/HCPCS: 49560; 49568; C1781; J0690; J2060; J2250; J2405; J2704; J2765; J3010

== ENCOUNTER → 2021-09-25 14:10 | Outpatient (CLI) | payer OTHER, MEDICAID, SELFPAY ==
[2018-09-15 14:52] VITALS: BMI 37.5
--- NOTE | 2021-09-25 14:14 | DI.RAD.S_ITS ---
PROCEDURE: XR FOOT RT MIN 3V INDICATIONS: Bunion rt foot TECHNIQUE: 3 views of the foot were acquired. COMPARISON: None. FINDINGS: Bones: No fractures or dislocations. No suspicious bony lesions. Bunion with mild hallux valgus deformity. Small dorsal calcaneal bone spur. Soft tissues: No tibiotalar joint effusion. Achilles tendon appears normal. IMPRESSION: 1. Medial bunion. 2. Calcaneal bone spur. Dictated by: Maryann Merchant MD, PhD on 09/25/2021 at 16:29 Approved by: Maryann Merchant MD, PhD on 09/25/2021 at 16:30
== END ==
PROVIDERS: Family Provider Family Medicine; PCP Family Medicine; Referring Provider Family Medicine; Visit Provider Family Medicine
DX: M21.611 Bunion of right foot (principal); M77.31 Calcaneal spur, right foot
CPT/HCPCS: 73630

== ENCOUNTER 2021-10-29 14:12 | Outpatient (CLI) | payer OTHER, MEDICAID, SELFPAY ==
[2018-09-15 14:52] VITALS: BMI 37.5
== END 2021-11-03 13:35 | disposition home or self-care (01) ==
LOC: PHYS 14:13
PROVIDERS: Family Provider Family Medicine; PCP Family Medicine; Referring Provider Family Medicine; Visit Provider Family Medicine
DX: G56.01 Carpal tunnel syndrome, right upper limb (principal)
CPT/HCPCS: 95885; 95886; 95911

== ENCOUNTER → 2021-12-24 16:05 | Outpatient (CLI) | payer OTHER, MEDICAID, SELFPAY ==
[2018-09-15 14:52] VITALS: BMI 37.5
[2021-12-24 17:27] LABS: COVID19 -Nasal RAPID Negative (Negative)
== END ==
PROVIDERS: Family Provider Family Medicine; PCP Family Medicine; Referring Provider Obstetrics & Gynecology; Visit Provider Obstetrics & Gynecology
DX: Z01.812 Encounter for preprocedural laboratory examination (principal); Z20.822 Contact with and (suspected) exposure to COVID-19
CPT/HCPCS: 87635; C9803

== ENCOUNTER 2021-12-25 08:45 | Day surgery (SDC) | payer OTHER, MEDICAID, SELFPAY ==
[2018-09-15 14:52] VITALS: BMI 37.5
[2021-12-23 08:24] VITALS: BMI 35.0
--- NOTE | 2021-12-25 | PATH_ITS ---
[facility] Accession Number: [id number] . 01 Material submitted: . PART A: cervix - CONE OF CERVIX PART B: endocervix - ENDOCERVICAL CURETTING . 01 Clinical history: . A: CUT AT ONE O'CLOCK . 01 Diagnosis: A. Uterine Cervix, Cold Knife Conization: Transformation zone mucosa with high-grade squamous intraepithelial lesion (HSIL, YAZAN 2-3/moderate to severe dysplasia) with extension into endocervical glands. Please see comment for margins assessment. Negative for glandular dysplasia and invasive malignancy. . B. Endocervix, Curettage: A few minute strips of benign endocervical epithelium. . COMMENT: The specimen is difficult to orient, limiting definitive assessment of the margins. HSIL is present in the 9-12-3-6 o'clock quadrant and absent in the 6 to 9 o'clock quadrant. In part A4 (9 to 12 o'clock fragment), HSIL is present in a fragment of tissue that cannot be oriented, and is seen less than 0.5 mm from both inked edges of this tissue. HSIL appears free from the deep margin. Clinical correlation is necessary. [facility] 12/31/2021 0649 Local . 01 Electronically signed: . Laura Groves MD, Pathologist NPI- [id number] . 01 Gross description: . Received in two parts. . A. Received in formalin in a specimen container, labeled with the patient's name and medical record number, cone biopsy of cervix, cut at 1 o'clock, is previously oriented with a cut at 1 o'clock, pink, soft tissue fragment covered by mucosa that measures 3.7 cm from 9 to 3 o'clock by 1.5 cm from 6 to 12 o'clock, and 0.3 cm in thickness. The specimen's cut edge at 1 o'clock is difficult to ascertain after formalin fixation; however, an apparent cut area is designated as 1 o'clock and is inked yellow and the deep resection is inked in black. The edge margin is circumferentially inked in blue. The specimen is serially sectioned in a pie shape and entirely sequentially submitted in cassettes A1-A4 as follows: . A1: 12 to 3 o'clock. A2: 3 to 6 o'clock. A3: 6 to 9 o'clock. A4: 9 to 12 o'clock. . B. Received in formalin in a specimen container, labeled with the patient's name and medical record number, endocervical curetting, is an aggregate of multiple semitranslucent mucinous, pink and red, soft tissue fragments that measure 1.3 x 0.8 x 0.2 cm. The specimen is filtered and entirely submitted in cassette B1. ([id number]) /MRV 12/31/2021 0649 Local . 01 Pathologist provided ICD-10: N87.1 . 01 CPT . 031606 Specimen Comment: A courtesy copy of this report has been sent to [phone] Performed at: 01 [facility] [address] [place] [address], [place], [place] [id number] MD Randal Porter MD Phone: [phone]
[2021-12-25 09:15] VITALS: BP 137/85; PULSE 86; RESP 16; TEMP 36.4; O2SAT 96; BMI 35.0
[2021-12-25] MEDS: LACTATED RINGERS 1,000 ML 42 ML IV ×2 (09:34→12:59)
--- NOTE | 2021-12-25 11:36 | PM.PREOP ---
Pre-operative Note COVID-19 COVID-19 status: Negative Result date/Date tested (Pos, Neg/Pending): 12/25/21 Criteria for continued procedure: Non-surgical alternatives not available or appropriate per current SOC Interval Note History & Physical reviewed/Exam performed by Physician: Yes Changes to H&P: No
[2021-12-25] MEDS: INSULIN REGULAR 100 UNIT/ML 3 ML VIAL 8 UNIT SUBCUT (11:51)
--- NOTE | 2021-12-25 12:14 | SUR.OPER ---
Lithotomy on padded OR bed, head on pillow, arms secured on padded arm boards at <90 degrees abduction. Legs secured in padded yellow fins stirrups. patients cell phone placed in patient belongings bag in pre-op area. patient voided in pre-op bathroom prior to going to OR with this rn.
[2021-12-25] MEDS: ACETIC ACID 500 ML IRRIG 60 ML TOP (12:18)
--- NOTE | 2021-12-25 12:50 | PM.GYNOP.1 ---
Operative Date/Time/Diagnoses Date of procedure: 12/25/21 Time of procedure: 12:00 Pre-op diagnosis: High grade dysplasia of the uterine cervix Post-op diagnosis: same Procedure & Clinicians Procedure: Procedures Operation Date: 12/25/21 11:00 Actual Procedure Side Surgeon mery Cold Knife Conization Of Cervix Not Applicable Isrrael Colmenares MD Indications: Lalitha presented in referral from her PCP with recurrent HGSIL on colposcopic ectocervical biopsy with ECC showing fragmented mucosa also demonstrating HGSIL.? Patient has had a LEEP in the past for HGSIL but up until her post recent Pap, all had been negative.? She presented to discuss possible repeat LEEP vs. CKC.Options discussed for the further evaluation and treatment of recurrent high-grade squamous dysplasia with possible endocervical involved.? Given the choice between a repeat LEEP and cold knife conization of the cervix, patient opts for the latter.? She is currently scheduled for performance of a cold knife cone conization in the main OR of [facility] and presents today for her scheduled surgery. Surgeon: Isrrael Colmenares Anesthesia Type: General Operative Notes Findings: No significant AWE changes on the portion with TZ in canal Closure Type: not applicable Specimen(s): other (Cone biopsy of cervix, endocervical curettings) Estimated blood loss (mL): 20 Blood products transfused: none Procedure in detail: With the patient under satisfactory general anesthesia in the modified dorsal lithotomy position, the perineum was prepped in usual manner for conization. A pre-surgical safety time-out was then taken in accordance with [facility] protocols. A weighted speculum was placed in the vagina and a Rodriguez retractor placed anteriorly. Hemostatic sutures were placed at 3:00, 6:00, and 9:00 using #1 Chromic. Sharp conization was performed then with a #11 Blade on an angled knife handle. The specimen was cut at 1:00 and submitted in formalin for pathologic evaluation. ECC was then performed with a Indraian box curette and submitted as a separate specimen. Cone bed was then coagulated with electrocautery using careful avoidance of the IUD strings. Once the cone bed was hemostatic, a Surgicel was sewn in place and secured 1st with the 3:00 and 9:00 sutures incorporating 6:00 suture. Hemostasis was excellent and there was no bleeding whatsoever at the end of case. The patient was awakened and transferred the PACU for a period of observation after having tolerated the procedure well. Complications: none Post-operative Condition: stable Disposition: PACU Plan for aftercare: Routine postoperative care with follow-up plan for 2 weeks postop.
[2021-12-25 12:51] VITALS: BP 120/73; PULSE 73; RESP 16; TEMP 36.2; O2SAT 98
[2021-12-25 12:56] VITALS: BP 139/80; PULSE 100; RESP 28; O2SAT 90
[2021-12-25] MEDS: ONDANSETRON 4 MG/2 ML INJ IV (12:57)
[2021-12-25 13:01] VITALS: BP 148/83; PULSE 80; RESP 16; O2SAT 98
[2021-12-25 13:12] VITALS: BP 150/84; PULSE 82; RESP 16; O2SAT 99
== END 2021-12-25 13:28 | disposition home or self-care (01) ==
PROVIDERS: Family Provider Family Medicine; PCP Family Medicine; Referring Provider Obstetrics & Gynecology; Visit Provider Obstetrics & Gynecology
PROC: 0UBC7ZZ Excision of Cervix, Via Natural or Artificial Opening (ICD-10-PCS; CPT 57520; principal; 2021-12-25 11:00)
DX: N87.1 Moderate cervical dysplasia (principal); E11.9 Type 2 diabetes mellitus without complications; Z79.84 Long term (current) use of oral hypoglycemic drugs
CPT/HCPCS: 57520; 82962; J2250; J2405; J3010

== ENCOUNTER 2022-05-10 22:17 | Emergency (ER) | payer OTHER, MEDICAID, SELFPAY ==
[2018-09-15 14:52] VITALS: BMI 37.5
[2022-05-10 22:28] VITALS: BP 134/82; PULSE 91; RESP 20; TEMP 36.7; O2SAT 97; BMI 34.4
--- NOTE | 2022-05-10 22:40 | DI.RAD.S_ITS ---
PROCEDURE: XR CHEST 1V INDICATIONS: Shortness of breath TECHNIQUE: One view of the chest was acquired. COMPARISON: [facility], , CHEST 1 VIEW, 01/25/2016, 6:52. FINDINGS: Surgical changes and devices: None. Lungs and pleura: Lungs are clear. No pleural effusions or pneumothorax. Mediastinum: Mediastinal contours appear normal. Heart size is normal. Bones and chest wall: No suspicious bony lesions. Overlying soft tissues appear unremarkable. IMPRESSION: 1. No acute cardiopulmonary disease. Dictated by: Randal Crenshaw M.D. on 05/11/2022 at 0:54 Approved by: Randal Crenshaw M.D. on 05/11/2022 at 0:55
[2022-05-10 23:06] LABS: Add Manual Diff / Slide Review NO; Basophils Absolute Auto 100 /uL (0-100); Basophils Percent Auto 1.3 % (0-2); Eosinophils Absolute Auto 300 /uL (0-450); Eosinophils Percent Auto 3.1 % (2-4); Hematocrit 39.9 % (36-46); Lymphocytes Absolute Auto 1900 /uL (1100-4500); Lymphocytes Percent Auto 18.5 % (25-40); Mean Corpuscular HGB Conc 32.6 % (30-36); Mean Corpuscular Hemoglobin 25.3 PG (26-34); Mean Corpuscular Volume 77.7 fL (80-100); Monocytes Absolute Auto 400 /uL (0-900); Monocytes Percent Auto 4.2 % (3-14); Neutrophils Absolute Auto 7400 /uL (1500-7000); Neutrophils Percent Auto 72.9 % (50-75); Platelet Count 425 X10^3/uL (150-400); Red Blood Cell Count 5.13 X10^6/uL (4.0-5.2); Red Cell Distribution Width 13.6 % (11.6-14.8); White Blood Cell Count 10.2 X10^3/uL (4.5-11.0)
[2022-05-10 23:22] LABS: INR 1.1 (0.9-1.3); Prothrombin Time 12.7 SECONDS (10.1-12.7)
[2022-05-10 23:33] LABS: Lactate (Lactic Acid) 0.9 mmol/L (0.7-2.1)
[2022-05-10 23:34] LABS: Alanine Aminotransferase 33 IU/L (<35); Albumin 4.3 g/dL (3.5-5.0); Albumin Globulin Ratio 1.2 (1.0-2.8); Alkaline Phosphatase 107 U/L (38-126); Aspartate Aminotransferase 24 IU/L (14-36); BUN Creatinine Ratio 16.7 (6-22); Bilirubin Total 0.3 mg/dL (0.2-1.3); Blood Urea Nitrogen 11 mg/dL (7-17); Calcium 9.2 mg/dL (8.4-10.2); Carbon Dioxide 25 mmol/L (22-32); Chloride 102 mmol/L (98-107); Estimated Glomerular Filt Rate > 60 mL/min (>60); Globulin 3.6 g/dL (1.7-4.1); Glucose 154 mg/dL (70-100); HEMOLYSIS < 15 (0-50); Potassium 3.9 mmol/L (3.4-5.1); Sodium 136 mmol/L (137-145); Total Protein 7.9 g/dL (6.3-8.2)
[2022-05-10 23:38] LABS: Influenza A - CEPHEID Flu A NEGATIVE (NEGATIVE); Influenza B - CEPHEID Flu B NEGATIVE (NEGATIVE); Respiratory Syncytial Virus Negative (Negative)
[2022-05-10 23:46] LABS: COVID-19 CEPHEID 4-PLEX PCR Negative (Negative); NT-proBNP (BNP-Adult 18+) 21 pg/mL (<125); Troponin I < 0.012 ng/mL (0.01-0.034)
--- NOTE | 2022-05-11 01:58 | ED_ITS ---
HPI - Chest Pain General Chief Complaint: Chest Pain Stated Complaint: chest pain Time Seen by Provider: 05/11/22 01:58 Source: patient Mode of arrival: Ambulatory Limitations: no limitations History of Present Illness HPI narrative: 41-year-old female former smoker, diabetic presents with a chief complaint of sore throat, cough, chest pain for the past week or so. She is had subjective fever and chills. She denies nausea, vomiting or diarrhea. She is had no constipation or urinary complaints. She states that her chest pain is sharp and stabbing and in the center of her chest. She states it seems to be worse with cough and occasionally when eating. She has had a few episodes of hemoptysis but none recently. She denies other provocation or palliation. She is currently not having pain. She denies exercise intolerance, dizziness, weakness or lightheadedness. Her son had group G strep in February. She denies history of blood clot, cancer or recent travel Related Data Home Medications Medication Instructions Recorded Confirmed buspirone 10 mg tablet 10 mg PO BID PRN Anxiety 01/05/18 12/25/21 insulin glargine 100 unit/mL ml SUBCUT 12/25/21 subcutaneous solution (Lantus U-100 Insulin) Previous Rx's Medication Instructions Recorded paroxetine HCl 40 mg tablet (Paxil) 40 mg PO QDAY #30 tabs 01/25/16 pantoprazole 40 mg tablet,delayed 40 mg PO DAILY #30 tabs 05/11/22 release (Protonix) Allergies Allergy/AdvReac Type Severity Reaction Status Date / Time meperidine [From DEMEROL] AdvReac Intermediate SEVERE Verified 05/10/22 22:40 NAUSEA Review of Systems Review of Systems Narrative: GENERAL: See HPI HEENT: HPI RESPIRATORY: See HPI CARDIOVASCULAR: See HPI GASTROINTESTINAL: See HPI : Denies dysuria, frequency, incontinence, hematuria, urinary retention. MUSCULOSKELETAL: denies weakness, joint pain, or bony pain SKIN: Denies rash, skin lesions, or other NEUROLOGIC: Denies weakness, headache, numbness, change in speech, confusion, seizures, incoordination. PSYCHIATRIC: No concerning psychosocial issues. 12 point review of systems is negative except for those stated above Patient History Medical History Anxiety and depression Carpal tunnel syndrome (~10/2021) Diabetes Surgical History Anesthesia Hx laparoscopic cholecystectomy (01/05/18) Hx of hernia repair (09/05/18) Status post delivery Family History Father Hypertension Gallstones Diabetes mellitus History of heart disease Fragile X syndrome Mother Cancer Hyperlipidemia Sister Mental health problem Fragile X syndrome Family/Other Fragile X syndrome Social History household members: family Smoking Status: Never smoker alcohol intake: current substance use type: does not use Smoking Status: Never smoker alcohol intake frequency: 0-2 drinks per day Substance Use Type: marijuana Exam Narrative Exam Narrative: GENERAL: [41] year old patient appears stated age. Well-developed patient, in mild distress. HEAD: Atraumatic. Normocephalic. EYES: Pupils equal round and reactive. Extraocular motions intact. No scleral icterus. No injection or drainage. ENT: Nose without bleeding, purulent drainage. Throat with minimal postpharyngeal erythema, without tonsillar hypertrophy or exudate. Airway patent. NECK: Trachea midline. Non tender CARDIOVASCULAR: Regular rate and rhythm without murmurs, gallops, or rubs. RESPIRATORY: Clear to auscultation. Breath sounds equal bilaterally. No wheezes, rales, or rhonchi. GASTROINTESTINAL: Abdomen soft, non-tender, nondistended. EXTREMITIES: No edema or joint tenderness. BACK: Nontender without deformity or crepitance. No flank tenderness. NEURO: AOx3. SKIN: No rash or erythema of visible areas Initial Vital Signs Initial Vital Signs: Vital Signs Temperature 98.1 F 05/10/22 22:28 Pulse Rate 91 H 05/10/22 22:28 Respiratory Rate 20 05/10/22 22:28 Blood Pressure 134/82 05/10/22 22:28 Pulse Oximetry 97 05/10/22 22:28 Oxygen Delivery Method 05/10/22 22:28 Scores HEART Score Heart Score history: Slightly Suspicious Heart Score EKG: Normal Heart Score Age: < 45 years old Heart Score risk factors: No known risk factors Heart Score troponin: < or = to normal limit Heart Score Total: 0 PERC Score Age greater than or equal to 50 years: No Heart rate greater than or equal to 100 bpm: No Room Air O2 Sat less than 95%: No Unilateral leg swelling: No Recent trauma or surgery: No Hemoptysis: Yes Prior PE or DVT: No Hormone Use: No Total PERC Score: 1 Wells' Criteria for PE Clinical signs and symptoms of DVT: No PE is #1 Dx or equally likely: No Heart rate > 100: No Immobilization at least 3 days or surg in previous 4 weeks: No History of PE or DVT: No Hemoptysis: Yes Malignancy w/Treatment within 6 months or palliative: No Wells' PE Score total: 1 Course Orders Ordered: Discontinued Medications Al Hydrox/Mg Hydrox/Simethicone 20 ml/ Lidocaine HCl 15 ml 0 ml PO NOW ONE Stop: 05/11/22 02:15 Last Admin: 05/11/22 02:29 Dose: 20 ml Documented By: MO Pantoprazole Sodium (Pantoprazole 40 Mg Vial) 40 mg IV NOW ONE Stop: 05/11/22 02:15 Last Admin: 05/11/22 02:30 Dose: 40 mg Documented By: MO Vital Signs Vital signs: Vital Signs - 8 hr 05/10/22 22:28 Temperature 98.1 F Pulse Rate 91 H Respiratory Rate 20 Blood Pressure 134/82 Pulse Oximetry 97 Oxygen Delivery Method Room Air MDM - Chest Pain Lab Data Result diagrams: 05/10/22 22:51 05/10/22 22:51 Labs: Lab Results 05/10/22 05/10/22 05/10/22 Range/Units 22:51 22:51 22:51 WBC 10.2 (4.5-11.0) X10^3/uL RBC 5.13 (4.0-5.2) X10^6/uL Hgb 13.0 (12.0-16.0) g/dL Hct 39.9 (36-46) % MCV 77.7 L (80-100) fL MCH 25.3 L (26-34) PG MCHC 32.6 (30-36) % RDW 13.6 (11.6-14.8) % Plt Count 425 H (150-400) X10^3/uL Neut % (Auto) 72.9 (50-75) % Lymph % (Auto) 18.5 L (25-40) % Lawrence % (Auto) 4.2 (3-14) % Eos % (Auto) 3.1 (2-4) % Baso % (Auto) 1.3 (0-2) % Neut # (Auto) 7400 H (0135-5495) /uL Lymph # (Auto) 1900 (4927-3936) /uL Lawrence # (Auto) 400 (0-900) /uL Eos # (Auto) 300 (0-450) /uL Baso # (Auto) 100 (0-100) /uL PT 12.7 (10.1-12.7) SECONDS INR 1.1 (0.9-1.3) D-Dimer (<500) ng/ml Sodium 136 L (137-145) mmol/L Potassium 3.9 (3.4-5.1) mmol/L Chloride 102 (98-107) mmol/L Carbon Dioxide 25 (22-32) mmol/L BUN 11 (7-17) mg/dL Creatinine 0.66 (0.52-1.04) mg/dL Estimated GFR > 60 (>60) mL/min BUN/Creatinine Ratio 16.7 (6-22) Glucose 154 H (70-100) mg/dL Lactate (0.7-2.1) mmol/L Calcium 9.2 (8.4-10.2) mg/dL Total Bilirubin 0.3 (0.2-1.3) mg/dL AST 24 (14-36) IU/L ALT 33 (<35) IU/L Alkaline Phosphatase 107 (38-126) U/L Troponin I < 0.012 (0.01-0.034) ng/mL NT-Pro-B Natriuret Pep 21 (<125) pg/mL Total Protein 7.9 (6.3-8.2) g/dL Albumin 4.3 (3.5-5.0) g/dL Globulin 3.6 (1.7-4.1) g/dL Albumin/Globulin Ratio 1.2 (1.0-2.8) SARS-CoV-2 (PCR) (Negative) Influenza A (RT-PCR) (NEGATIVE) Influenza B (RT-PCR) (NEGATIVE) RSV (PCR) (Negative) 05/10/22 05/10/22 05/10/22 Range/Units 22:51 22:51 22:53 WBC (4.5-11.0) X10^3/uL RBC (4.0-5.2) X10^6/uL Hgb (12.0-16.0) g/dL Hct (36-46) % MCV (80-100) fL MCH (26-34) PG MCHC (30-36) % RDW (11.6-14.8) % Plt Count (150-400) X10^3/uL Neut % (Auto) (50-75) % Lymph % (Auto) (25-40) % Lawrence % (Auto) (3-14) % Eos % (Auto) (2-4) % Baso % (Auto) (0-2) % Neut # (Auto) (1461-3810) /uL Lymph # (Auto) (5940-7087) /uL Lawrence # (Auto) (0-900) /uL Eos # (Auto) (0-450) /uL Baso # (Auto) (0-100) /uL PT (10.1-12.7) SECONDS INR (0.9-1.3) D-Dimer 540 H (<500) ng/ml Sodium (137-145) mmol/L Potassium (3.4-5.1) mmol/L Chloride (98-107) mmol/L Carbon Dioxide (22-32) mmol/L BUN (7-17) mg/dL Creatinine (0.52-1.04) mg/dL Estimated GFR (>60) mL/min BUN/Creatinine Ratio (6-22) Glucose (70-100) mg/dL Lactate 0.9 (0.7-2.1) mmol/L Calcium (8.4-10.2) mg/dL Total Bilirubin (0.2-1.3) mg/dL AST (14-36) IU/L ALT (<35) IU/L Alkaline Phosphatase (38-126) U/L Troponin I (0.01-0.034) ng/mL NT-Pro-B Natriuret Pep (<125) pg/mL Total Protein (6.3-8.2) g/dL Albumin (3.5-5.0) g/dL Globulin (1.7-4.1) g/dL Albumin/Globulin Ratio (1.0-2.8) SARS-CoV-2 (PCR) Negative (Negative) Influenza A (RT-PCR) Flu a negative (NEGATIVE) Influenza B (RT-PCR) Flu b negative (NEGATIVE) RSV (PCR) Negative (Negative) Point of Care Testing Rapid Strep A Negative Imaging Data Chest x-ray: Radiologist's Impression: [address] [address] XRay Report Signed Patient: Lalitha Renteria MR#: [id number] : 1980 Acct:[id number] Age/Sex: 41 / F Date of Service: 05/10/22 Loc: ED Accession Number: [id number] ?? Procedure: XR chest 1V Ordering Provider: Blayne Lester D.O. PROCEDURE:? XR CHEST 1V ? INDICATIONS:? Shortness of breath ? TECHNIQUE:? One view of the chest was acquired.? ? COMPARISON:? [facility], , CHEST 1 VIEW, 01/25/2016, 6:52. ? FINDINGS:? ? Surgical changes and devices:? None.? ? Lungs and pleura:? Lungs are clear.? No pleural effusions or pneumothorax.? ? Mediastinum:? Mediastinal contours appear normal.? Heart size is normal.? ? Bones and chest wall:? No suspicious bony lesions.? Overlying soft tissues appear unremarkable.? ? IMPRESSION:? ? 1.? No acute cardiopulmonary disease. ? ? ? Dictated by: Randal Crenshaw M.D. on 05/11/2022 at 0:54 ? ? Approved by: Randal Crenshaw M.D. on 05/11/2022 at 0:55 ? ECG Data Interpretation: [2242] EKG is normal sinus rhythm rate [85 ] and free of any signs of ischemia or ectopy. No ST segmental elevation or depression. No T wave inversions MDM Narrative Medical decision making narrative: 41-year-old female with history of diabetes prior smoker presents with sore throat, pleuritic-type chest pain, shortness of breath and occasional hemoptysis for the past week or so. Multiple diagnoses considered including strep, COVID, flu, pneumonia and pulmonary embolism among others. Her exam is largely reassuring and rapid strep was negative, bacterial pharyngitis thought unlikely given relatively widespread symptoms. Respiratory swabs for COVID, flu and RSV are negative. Chest x-ray demonstrates no focal infiltrate or other abnormality. There is no elevated white blood cell count or left shift. Troponin is negative, EKG shows no occlusive findings and heart score is low, furthermore there are no exertional symptoms and she is absent of other cardiac equivalent, cardiac ischemia thought extremely unlikely. Arthur Chaidez's PE algorithm employed and though she has low risk for Wells score she does have a PERC score of 1 for hemoptysis therefore D-dimer ordered which was found to be elevated hence decision to order CT angiogram. Thankfully no pulmonary embolism or other significant findings are noted. Her symptoms did significantly if not completely resolve with use of Protonix and a GI cocktail which certainly is not diagnostic but contributes to a higher likelihood reflux or other esophageal issue as being a major contributing factor to her symptoms. She has significant improvement symptoms, is tolerating orals and pain is well controlled. She is in no respiratory distress and appropriate for discharge. Discharge Plan Departure Patient Disposition: Home Clinical Impression: Epigastric abdominal pain Instructions: DI for Epigastric Pain Activity Restrictions/Additional Instructions: *You have been diagnosed with [epigastric pain as we discussed we ruled out multiple diagnoses such as cardiac ischemia, blood clot, pneumonia or other significant diagnosis that would require another specific or immediate intervention] *What to do: *Please continue to take your regular medications as directed. [ x] New medication prescriptions sent to your pharmacy: [[place] ] [ ] New medication written as a paper prescription [ ] No new medications given *Please follow up with your primary care provider in 2-3 days, call for an appointment. Let them know you were seen in the Emergency Department and that we ask that you be seen in follow up. We will electronically transmit a record of today's note if your PCP is in our system * please consider a clear liquid diet for the next 24-48 hours and then advance as tolerated while avoiding possible triggers for esophageal pain such as alcohol, spicy foods, fatty foods, significant caffeine and others. *Return to Emergency Department if you should have any new, worsening or concerning symptoms, such as [fever greater than 101 F, shaking chills, worsening pain, persistent vomiting or other bothersome symptoms] Prescriptions: New pantoprazole [Protonix] 40 mg tablet,delayed release (DR/EC) 40 mg PO DAILY Qty: 30 0RF No Action paroxetine HCl [Paxil] 40 MG tablet 40 mg PO QDAY Qty: 30 0RF buspirone 10 mg tablet 10 mg PO BID PRN (Reason: Anxiety) Label Comments: take 1 tablet by mouth twice a day insulin glargine [Lantus U-100 Insulin] 100 unit/mL solution SUBCUT MDD 50 Label Comments: INJECT 45 UNITS SUBCUTANEOUSLY TWICE A DAY. DUE FOR LABS AND APPOINTMENT Rx Instructions: took 25 mg Referrals: Ant Marks MD [Primary Care Provider] - Visit Report Forms: Patient Portal/API
[2022-05-11 01:59] VITALS: PULSE 79; RESP 17; O2SAT 97
[2022-05-11 02:00] VITALS: BP 125/80; PULSE 76; PULSE 80; RESP 18; RESP 19; O2SAT 98
[2022-05-11 02:24] LABS: D Dimer 540 ng/ml (<500)
[2022-05-11] MEDS: MAG HYDROX/ALUMINUM/SIMETH SUS 20 ML, LIDOCAINE VISCOUS 2% 15 ML PO (02:29)
[2022-05-11 02:30] VITALS: PULSE 72; RESP 21; O2SAT 98
[2022-05-11] MEDS: PANTOPRAZOLE 40 MG VIAL IV (02:30)
[2022-05-11 03:00] VITALS: PULSE 74; RESP 22; O2SAT 97
--- NOTE | 2022-05-11 03:08 | DI.CT.S_ITS ---
PROCEDURE: CT ANGIO CHEST PE PROTOCOL INDICATIONS: pleuritic chest pain x1 month, hemoptysis, critical dimer TECHNIQUE: After the administration of intravenous contrast, 2 mm thick sections acquired from the pulmonary apices to the posterior costophrenic angles. 3-dimensional maximum intensity projection (MIP) coronal and sagittal reformats were then acquired through the thorax. For radiation dose reduction, the following was used: automated exposure control, adjustment of mA and/or kV according to patient size. COMPARISON: [facility], CR, XR CHEST 1V, 05/10/2022, 23:04. FINDINGS: Image quality: Excellent. Pulmonary arteries: Pulmonary arteries are normal in size, and demonstrate no intraluminal filling defects to suggest central pulmonary embolism. Lungs and pleura: Right hemidiaphragm elevation. Lungs are clear. No pleural effusions or pneumothorax. Central and peripheral airways are patent. Mediastinum: Heart size is normal, without pericardial effusion. No mediastinal or hilar adenopathy. Thoracic aorta is normal in caliber and enhancement. Esophagus is normal in caliber. Small hiatal hernia. Bones and chest wall: No suspicious bony lesions. Ribs and thoracic spine appear intact throughout. Thyroid gland is normal. No axillary or supraclavicular adenopathy. Abdomen: Visualized upper abdominal solid organs appear normal in the early arterial phase of enhancement. IMPRESSION: 1. No evidence for pulmonary embolism. 2. Small hiatal hernia. 3. Right hemidiaphragm elevation. No significant discrepancy with the shift mechanic radiology preliminary report. Dictated by: Nikita Green M.D. on 05/11/2022 at 8:06 Approved by: Nikita Green M.D. on 05/11/2022 at 8:09
[2022-05-11 03:30] VITALS: PULSE 83; RESP 24; O2SAT 98
[2022-05-11 04:00] VITALS: PULSE 78; RESP 44; O2SAT 96
== END 2022-05-11 04:23 | disposition home or self-care (01) ==
PROVIDERS: Emergency Provider Emergency Medicine; Family Provider Family Medicine; PCP Family Medicine
DX: R10.13 Epigastric pain (principal); J02.9 Acute pharyngitis, unspecified; Z20.822 Contact with and (suspected) exposure to COVID-19
CPT/HCPCS: 0241U; 36415; 71045; 71275; 80053; 83605; 83880; 84484; 85025; 85379; 85610; 87070; 87880; 93005; 93010; 96374; 99284; C9113; Q9967

== ENCOUNTER 2023-08-24 21:11 | Emergency (ER) | payer OTHER, MEDICAID, SELFPAY ==
[2018-09-15 14:52] VITALS: BMI 37.5
[2023-08-24 21:25] VITALS: BP 163/96; PULSE 85; RESP 18; TEMP 37.1; O2SAT 98; BMI 31.9
[2023-08-24 21:29] VITALS: PULSE 80; O2SAT 97
[2023-08-24 21:30] VITALS: BP 163/96; PULSE 83; O2SAT 97
--- NOTE | 2023-08-24 21:35 | ED.EXTPRO ---
HPI - Extremity Problem General Chief complaint: Extremity Problem,Nontraumatic Stated complaint: possible blood clot lt leg Time Seen by Provider: 08/24/23 21:24 Source: patient Mode of arrival: Ambulatory History of Present Illness HPI Narrative: 43-year-old female. Just recently completed a multi day multi hour car ride from [place] who is here for evaluation of swelling to her left ankle and left foot. She reports no specific trauma. No chest pain. No shortness of breath. No calf pain. No leg pain. No knee pain. Never had a blood clot in the past. Was advised to come to the emergency department by her primary doctor for evaluation. Related Data Home Medications Medication Instructions Recorded Confirmed buspirone 10 mg tablet 10 mg PO BID PRN Anxiety 01/05/18 12/25/21 insulin glargine 100 unit/mL ml SUBCUT 12/25/21 subcutaneous solution (Lantus U-100 Insulin) Previous Rx's Medication Instructions Recorded paroxetine HCl 40 mg tablet (Paxil) 40 mg PO QDAY #30 tabs 01/25/16 pantoprazole 40 mg tablet,delayed 40 mg PO DAILY #30 tabs 05/11/22 release (Protonix) Allergies Allergy/AdvReac Type Severity Reaction Status Date / Time meperidine [From DEMEROL] AdvReac Intermediate SEVERE Verified 05/10/22 22:40 NAUSEA Review of Systems Constitutional Constitutional: Reports system reviewed and no additional complaints, except as documented Cardiovascular Cardiovascular: Reports system reviewed and no additional complaints, except as documented Respiratory Respiratory: Reports system reviewed and no additional complaints, except as documented Gastrointestinal Gastrointestinal: Reports system reviewed and no additional complaints, except as documented Musculoskeletal Musculoskeletal: Reports system reviewed and no additional complaints, except as documented Integumentary/Breasts Skin/Breast: Reports system reviewed and no additional complaints, except as documented Hematologic/Lymphatic On Anticoagulants: No Patient History Medical History Carpal tunnel syndrome (~10/2021) Anxiety and depression Diabetes Surgical History Anesthesia Hx laparoscopic cholecystectomy (01/05/18) Hx of hernia repair (09/05/18) Status post delivery Family History Father Hypertension Gallstones Diabetes mellitus History of heart disease Fragile X syndrome Mother Cancer Hyperlipidemia Sister Mental health problem Fragile X syndrome Family/Other Fragile X syndrome Social History household members: family Smoking Status: Current every day smoker alcohol intake: current substance use type: does not use Smoking Status: Current every day smoker tobacco type: vaping alcohol intake frequency: a few times a month Substance Use Type: marijuana Exam Initial Vital Signs Initial Vital Signs: Vital Signs Temperature 98.8 F 08/24/23 21:25 Pulse Rate 85 08/24/23 21:25 Respiratory Rate 18 08/24/23 21:25 Blood Pressure 163/96 H 08/24/23 21:25 Pulse Oximetry 98 08/24/23 21:25 Oxygen Delivery Method Room Air 08/24/23 21:25 Const General: cooperative and comfortable Resp Effort & Inspection: normal respiratory effort Cardio Rate: regular rate Pulses: dorsalis pedis present on the left Skin General: no rashes or lesions noted Neuro Sensory Exam: no sensory deficits noted Extrem Other: No calf tenderness. No calf swelling. Very mild swelling to the left ankle. No tenderness to palpation of the left ankle where foot. Course Orders Ordered: ED Orders 08/24/23 21:58 Basic Metabolic Panel Stat Complete Blood Count AUTO DIFF Stat D Dimer Stat Discontinued Medications Cyclobenzaprine HCl (Cyclobenzaprine 10 Mg Prepack) 1 bottle MISC DIRECTED ONE Stop: 08/24/23 21:50 Last Admin: 08/24/23 21:54 Dose: Not Given Documented By: BS Tramadol HCl (Tramadol 50 Mg Prepack) 1 bottle MISC DIRECTED ONE Stop: 08/24/23 21:50 Last Admin: 08/24/23 21:54 Dose: Not Given Documented By: BS Vital Signs Vital signs: Vital Signs - 8 hr 08/24/23 21:25 08/24/23 21:29 08/24/23 21:30 Temperature 98.8 F Pulse Rate 85 80 83 Respiratory Rate 18 Blood Pressure 163/96 H Pulse Oximetry 98 97 97 Oxygen Delivery Method Room Air 08/24/23 21:30 08/24/23 22:00 08/24/23 22:30 Temperature Pulse Rate 74 75 Respiratory Rate Blood Pressure 163/96 H Pulse Oximetry 95 95 Oxygen Delivery Method MDM - Extremity (Nontraumatic) Lab Data 08/24/23 21:58 08/24/23 21:58 Labs: Lab Results 08/24/23 Range/Units 21:58 WBC 10.2 (4.5-11.0) X10^3/uL RBC 5.02 (4.0-5.2) X10^6/uL Hgb 13.1 (12.0-16.0) g/dL Hct 39.5 (36-46) % MCV 78.6 L (80-100) fL MCH 26.0 (26-34) PG MCHC 33.1 (30-36) % RDW 14.4 (11.6-14.8) % Plt Count 302 (150-400) X10^3/uL Neut % (Auto) 77.0 H (50-75) % Lymph % (Auto) 15.5 L (25-40) % [place] % (Auto) 4.6 (3-14) % Eos % (Auto) 2.0 (2-4) % Baso % (Auto) 0.9 (0-2) % Neut # (Auto) 7900 H (0906-3832) /uL Lymph # (Auto) 1600 (1692-5896) /uL [place] # (Auto) 500 (0-900) /uL Eos # (Auto) 200 (0-450) /uL Baso # (Auto) 100 (0-100) /uL D-Dimer 322 (<500) ng/ml Sodium 136 L (137-145) mmol/L Potassium 3.9 (3.4-5.1) mmol/L Chloride 106 (98-107) mmol/L Carbon Dioxide 22 (22-32) mmol/L BUN 21 H (7-17) mg/dL Creatinine 0.71 (0.52-1.04) mg/dL Estimated GFR > 60 (>60) mL/min BUN/Creatinine Ratio 29.6 H (6-22) Glucose 156 H (70-100) mg/dL Calcium 9.4 (8.4-10.2) mg/dL [facility] Narrative Medical decision making narrative: Patient does not specifically meet Wells criteria for DVT however would consider her long car ride as a potential period of immobilization. D-dimer negative. Because of this we will hold on ultrasound. She has no chest pain. No shortness of breath. No specific trauma. I feel that we can hold on x-rays. Potentially having swelling in her ankle she was because of the drive. Advised that she try to keep her leg elevated. She was given return precautions. She expressed understanding and agreement. Discharge Plan Departure Patient Disposition: Home Clinical Impression: Left ankle swelling Instructions: How To Perform RICE (Rest, Ice, Compress, Elevate) Activity Restrictions/Additional Instructions: I do recommend that you try to keep your foot/ankle is elevated as possible for the next couple days. Using some ice maybe helpful as well. Return to the emergency department for new or worsening symptoms. Prescriptions: No Action paroxetine HCl [Paxil] 40 MG tablet 40 mg PO QDAY Qty: 30 0RF buspirone 10 mg tablet 10 mg PO BID PRN (Reason: Anxiety) Patient Comments: take 1 tablet by mouth twice a day insulin glargine [Lantus U-100 Insulin] 100 unit/mL solution SUBCUT MDD 50 Patient Comments: INJECT 45 UNITS SUBCUTANEOUSLY TWICE A DAY. DUE FOR LABS AND APPOINTMENT Rx Instructions: took 25 mg pantoprazole [Protonix] 40 mg tablet,delayed release (DR/EC) 40 mg PO DAILY Qty: 30 0RF Referrals: Ant Marks MD [Primary Care Provider] - Stand Alone Forms: Patient Portal/API
[2023-08-24 22:00] VITALS: PULSE 74; O2SAT 95
[2023-08-24 22:16] LABS: Add Manual Diff / Slide Review NO; Basophils Absolute Auto 100 /uL (0-100); Basophils Percent Auto 0.9 % (0-2); Eosinophils Absolute Auto 200 /uL (0-450); Hematocrit 39.5 % (36-46); Hemoglobin 13.1 g/dL (12.0-16.0); Lymphocytes Absolute Auto 1600 /uL (1100-4500); Lymphocytes Percent Auto 15.5 % (25-40); Mean Corpuscular HGB Conc 33.1 % (30-36); Mean Corpuscular Volume 78.6 fL (80-100); Monocytes Absolute Auto 500 /uL (0-900); Monocytes Percent Auto 4.6 % (3-14); Neutrophils Absolute Auto 7900 /uL (1500-7000); Platelet Count 302 X10^3/uL (150-400); Red Blood Cell Count 5.02 X10^6/uL (4.0-5.2); Red Cell Distribution Width 14.4 % (11.6-14.8); White Blood Cell Count 10.2 X10^3/uL (4.5-11.0)
[2023-08-24 22:28] LABS: D Dimer 322 ng/ml (<500)
[2023-08-24 22:30] VITALS: PULSE 75; O2SAT 95
[2023-08-24 22:30] LABS: BUN Creatinine Ratio 29.6 (6-22); Blood Urea Nitrogen 21 mg/dL (7-17); Calcium 9.4 mg/dL (8.4-10.2); Carbon Dioxide 22 mmol/L (22-32); Chloride 106 mmol/L (98-107); Estimated Glomerular Filt Rate > 60 mL/min (>60); Glucose 156 mg/dL (70-100); HEMOLYSIS < 15 (0-50); Potassium 3.9 mmol/L (3.4-5.1); Sodium 136 mmol/L (137-145)
== END 2023-08-24 22:37 | disposition home or self-care (01) ==
PROVIDERS: Emergency Provider Emergency Medicine; Family Provider Family Medicine; PCP Family Medicine
DX: M79.89 Other specified soft tissue disorders (principal)
CPT/HCPCS: 36415; 80048; 85025; 85379; 99282; 99283

== ENCOUNTER 2023-11-11 07:30 | Outpatient (RCR) | payer OTHER, MEDICAID, SELFPAY ==
[2018-09-15 14:52] VITALS: BMI 37.5
--- NOTE | 2023-11-09 15:49 | PT.OIE ---
Current Diagnoses Pain in left knee (11/09/23) Low back pain, unspecified (11/09/23) Weakness (11/09/23) Past Medical History (Last Reviewed 08/24/23 @ 23:30 by Bubba Carl DO) Anxiety and depression Carpal tunnel syndrome (~10/2021) Diabetes Past Surgical History (Last Reviewed 05/11/22 @ 02:18 by Blayne Lester DO) Anesthesia Hx laparoscopic cholecystectomy (01/05/18) Hx of hernia repair (09/05/18) Status post delivery Visit Care Team Role Provider Type Ant Marks MD Attending Provider Physician Family Provider Primary Care Provider Referring Provider Specialty: Family Practice Address: [address] [place] [address] [place], [place], [facility] Email: [email or web address] Physical Therapy Initial Evaluation PT-OP-A Visit Information Start: 11/09/23 08:18 Freq: Status: Active Protocol: Document 11/09/23 08:19 NM (Rec: 11/09/23 09:44 NM [id number]) Out-Patient Physical Therapy Visit Information Visit Information Visit Type Initial Evaluation Visit Note 24 visits Visit Start Time 08:19 Visit Stop Time 09:05 Visit Number 1 Evaluation Information Evaluation Date 11/09/23 PT-OP-B Current Condition Start: 11/09/23 08:18 Freq: Status: Active Protocol: Document 11/09/23 08:19 NM (Rec: 11/09/23 09:44 NM [id number]) Current Condition History of Current Condition Onset Date a month ago Current Complaints weakness, pain History of Current Condition Pt presents with L knee and back pain. She has tried ice, which helps. Pain radiates up from knee to low back. Her knees feel weak, like they want to buckle. Hyperextends knees, reports more conscious about standing. Knee pain is bilateral, but L>R. On her left side, she reports that her foot feels heavy and is louder. She does reports that her knees with buckle but has no falls (bilateral). Feels like water in the knees but denies increase in swelling or fluid sacs like bursa. Pt is in process of losing weight, walking and watching what she eats. Reports that her balance is off and she's had several falls, unsure what happened. 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 Current Functional Impairments (Reported) Functional Limitations- ADL's no limitations but bothers her except 1 month ago Functional Limitations- Mobility/Gait pushes myself, babies the pain Functional Limitations- Recreation/ kneeling bothers knees for Hobbies gardening PT-OP-C Subjective Start: 11/09/23 08:18 Freq: Status: Active Protocol: Document 11/09/23 08:19 NM (Rec: 11/09/23 09:44 NM [id number]) OP-PT Subjective Patient Comments Patient Comments see hx above for pt report Patient Questionnaires Lower Extremity Functional Scale LEFS Score 56/80 Oswestry Low Back Index Oswestry Score 0/50 OP-PT Pain Assessment Location knees Pain Location Details posterior, medial, lateral Intensity 7 Scale Used Numeric (0 - 10) Description Aching,Shooting Frequency Frequent Pain Aggravating Factors Walking,Stair Climbing Other Pain Aggravating Factors bending, picking up objects, up stairs back Pain Location Details L sided, post leg to knee Intensity 1 Scale Used Numeric (0 - 10) Description Dull,Spasm,Tightness Frequency Intermittent Radiating Location posterior leg to knee Variations/Patterns no difference in time of day when occurs Pain Aggravating Factors Lifting Other Pain Aggravating Factors flexion Pain Alleviating Factors Cold,Massage Other Pain Alleviating Factors stretching, extension PT-OP-E Functional Tests Start: 11/09/23 08:18 Freq: Status: Active Protocol: Document 11/09/23 08:19 NM (Rec: 11/09/23 09:44 NM [id number]) Functional Tests Squat Test Score 5 Comments knee pain and crepitus w/ inc depth, inc trunk flex, dec DF Other Trunk Forward Flexion Test Name of Test measured finger tip to floor Score 4 Comment pain free but pulling PT-OP-F Manual Assessment Start: 11/09/23 08:18 Freq: Status: Active Protocol: Document 11/09/23 08:19 NM (Rec: 11/09/23 09:44 NM [id number]) Manual Assessments Soft Tissue Assessment Soft Tissue Mobility Assessment Increased tightness of L quad, hamstring. Increased L lumbar paraspinal tightness Joint Mobility Assessment Joint Mobility Assessment Increased joint laxity of B knees, hyperextension. Hypomobility with P-A springing of lumbar spine, pain free, reports feels good . Beighton score: 4/8 (knees, pinkies). L patellar laterally tracks throughout range PT-OP-G Mobility & Gait Start: 11/09/23 08:18 Freq: Status: Active Protocol: Document 11/09/23 08:19 NM (Rec: 11/09/23 09:44 NM [id number]) OP Gait Assessment Gait Gait Assistance Required: Independent Distance (Feet) 150 Gait Deviations General Gait Pattern Antalgic,Flexed Trunk Factors Limiting Gait Function Factors Limiting Gait Function Pain PT-OP-J Posture/Palpation/Skin Start: 11/09/23 08:18 Freq: Status: Active Protocol: Document 11/09/23 08:19 NM (Rec: 11/09/23 09:44 NM [id number]) Posture Evaluation Position Standing Head/C-Spine Posture Forward Head L-Spine Posture Flattened Knee Posture (L) Genu Valgus,(R) Genu Valgus,(L) Genu Recurvatum,(R) Genu Recurvatum Patellar Posture (L) Laterally Tilted Palpation Assessment Location back Palpation Details Increased muscle tightness along paraspinals Tender along QL, paraspinals ( L>R), piriformis, hamstring No midline or joint tenderness knees Palpation Details L knee tender along lateral distal hamstring, medial femoral condyle. No joint line tenderness Increased tightness of thigh muscles LLE PT-OP-K Range of Motion Start: 11/09/23 08:18 Freq: Status: Active Protocol: Document 11/09/23 08:19 NM (Rec: 11/09/23 09:44 NM [id number]) Lumbar Spine Range of Motion Lumbar Spine Active Percentage Flexion 90 Extension 100 Lateral Flexion Left 100 Lateral Flexion Right 100 Comments R lateral flexion reproduces L sided pain Hip Goniometric Range of Motion Hip Right Flexion w/Knee Flexed 110 Extension 10 Internal Rotation 28 External Rotation 30 Left Flexion w/Knee Flexed 105 Extension 10 Internal Rotation 30 External Rotation 30 Comments knee pain with rotation Knee Goniometric Range of Motion Knee Right Flexion Active (degrees) 126 Hyper-Extension Active 3 Comments HS length 170 deg Left Flexion Active (degrees) 135 Hyper-Extension Active 3 Comments HS length 155 deg Knee ROM Limitations Comments joint laxity PT-OP-L Special Tests Start: 11/09/23 08:18 Freq: Status: Active Protocol: Document 11/09/23 08:19 NM (Rec: 11/09/23 09:44 NM [id number]) Special Tests Lumbar Spine Special Tests Bowstring Test Results + Comments L Straight Leg Raise Test Results + Comments B Slump Test Results + Comments L Babin/Quadrant Test Results - Knee Special Tests Valgus Test Results + Comments pain free, but increased laxity at 0 and 25 deg Varus Test Results - B Comments 0 and 25 deg Posterior Drawer Test Results - B Enio Test Test Results - B Comments no joint line tenderness Moe's Test Results - B Neural Special Tests- Lower Body Femoral Nerve Tension Test Results + L PT-OP-M Strength Start: 11/09/23 08:18 Freq: Status: Active Protocol: Document 11/09/23 08:19 NM (Rec: 11/09/23 09:44 NM [id number]) Trunk Strength Trunk Manual Muscle Testing Flexion 4 Good Extension 4 Good Rotation Left 4 Good Rotation Right 4 Good Lateral Flexion Left 4 Good Lateral Flexion Right 4 Good Comments No pain with resisted testing Hip Strength Hip Manual Muscle Testing Right Flexion (L2) 4 Good Extension (S1) 4- Good- Abduction 4- Good- Adduction 4 Good External Rotation 4 Good Internal Rotation 4 Good Left Flexion (L2) 4 Good Extension (S1) 4- Good- Abduction 4- Good- Adduction 4 Good External Rotation 4 Good Internal Rotation 4 Good Knee Strength Knee Manual Muscle Testing Right Flexion (S2) 4+ Good+ Extension (L3) 4+ Good+ Left Flexion (S2) 4 Good Extension (L3) 4- Good- Comments hs PT-OP-Q Treatments Start: 11/09/23 08:18 Freq: Status: Active Protocol: Document 11/09/23 08:19 NM (Rec: 11/09/23 09:44 NM [id number]) Therapeutic Exercises Supine Exercises nerve glide Supine Exercise Name sciatic nerve glide: knee flex /ext Side left Reps/Minutes 1x30 Comments reports reduction in symptoms, tightness in legs; cued for correct form Other Exercises self soft tissue mobilization Other Exercise Name quad, hamstring, hip flexors, calfs Side left Equipment Used rolling pin Reps/Minutes 5 minutes Comments during education; reports reduction in muscle tightness Self-Care/Home Management Treatment Education Patient Education Joint Protection,Pain Management Other Education Education on joint protection due to ligamentous laxity, emphasis on standing/gait posture without locking out knees. Education further on spine and knee anatomy, disc and nerve tension, length- tension relationship of muscles. Recommended continuing with cryotherapy for pain reduction as needed PT-OP-T Assessment and Plan Start: 11/09/23 08:18 Freq: Status: Active Protocol: Document 11/09/23 08:19 NM (Rec: 11/09/23 09:44 NM [id number]) Physical Therapy Assessment Rehab Potential Rehabilitation Potential Good Evaluation Complexity Number of Personal Factors/Comorbidities 1-2 Number of Body Systems Impaired 1-2 Clinical Presentation at Evaluation Stable Impairments Impairments Activity Tolerance,Balance, Functional Activities, Functional Mobility,Gait,Pain, Posture,ROM,Sensation,Soft Tissue Mobility,Strength Other Concerns Barriers to Rehabilitation Pt is in the process of losing weight, primarily through diet and exercise (walking). She also is 4/8 on Beighton scale. Pt works split shifts and is required to perform heavy lifting Goals Six Impairment functional activities Impairment LEFS 56/80 Detention Goal (LTG) Pt will improve LEFS score to at least 60/80 in order to demonstrate improved pain management and activity tolerance LTG Duration 10 weeks Five Impairment body mechanics Short Term Goal (STG) Pt will demonstrate good core bracing at least 8/10 reps using good form and without compensation in order to be able to perform job requirements STG Duration 5 weeks Table Hand Goal (LTG) Pt will be able to perform at least 10 deadlifts with resistance using good form and without increase in baseline pain in order to be able to perform job requirements LTG Duration 10 weeks Four Impairment exercise/HEP Short Term Goal (STG) Pt will report compliance with HEP at least 3x/wk in order to maximize progression with PT and demonstrate independence on return to exercise STG Duration 5 weeks Detention Goal (LTG) Pt will report that she is able to participate in HEP or independent exercise without increase in baseline pain at least 3x/wk in order to demonstrate transition to maintenance program and improved health habits overall LTG Duration 10 weeks Three Impairment strength Short Term Goal (STG) Pt will improve knee flexion and extension strength to at least 4/5 MMT in order to demonstrate improved strength for gait, job requirements STG Duration 5 weeks Table Hand Goal (LTG) Pt will improve knee flexion and extension strength to at least 4+/5 MMT in order to demonstrate improved strength for gait, job requirements, and to be comparable to RLE LTG Duration 10 weeks Two Impairment body mechanics Short Term Goal (STG) Pt will be able to perform at least 10 bilateral squats without compensation or increase in baseline pain in order to demonstrate improved form, pain management, and body mechanics for work requirements STG Duration 5 weeks Detention Goal (LTG) Pt will be able to perform at least 10 bilateral squats while picking up at least 20# without compensation or increase in baseline pain in order to demonstrate improved body mechanics and activity tolerance for work requirements LTG Duration 10 weeks One Impairment strength Impairment BLE hip abd/ext strength 4-/5 Short Term Goal (STG) Pt will increase BLE hip abd/ ext strength to at least 4/5 MMT in order to demonstrate improved strength for ambulation and work requirements STG Duration 5 weeks Table Hand Goal (LTG) Pt will increase BLE hip abd/ ext strength to at least 4+/5 MMT in order to demonstrate improved strength for ambulation and work requirements LTG Duration 10 weeks Assessment Summary Assessment Pt is a 43 y.o. female presenting with back and knee pain without known onset, beginning about 1 month ago. Pt's back pain is episodic, gradually improving over the past month. She has impairments in ROM, strength, gait, balance, and pain management. Pt has increased L knee ROM and hyperextends both knees. She is a 4/8 on Beighton scale. Pt also demonstrates impairments in B hip and trunk strength. She has full trunk ROM. Her lumbar pain is reproduced with slump and straight leg raise testing, indicating increased neural tension and possible disc involvement. Overall, pt has increased muscle tightness along lumbar paraspinals and L thigh, which also limits her ROM and increases pain symptoms. Pt responds well to nerve glides and self soft tissue mobilization for symptom reduction. PT educated pt on exam findings and plan of care, in addition to goal creation with pt. Pt would benefit from skilled PT in order to improve global trunk/ BLE strength, flexibility, body mechanics and postural re -education for improved symptom management and activity tolerance. Physical Therapy Plan Frequency and Duration Frequency of Treatment 1-2x/wk Duration of treatment (weeks) 10 Plan of Care Start Date 11/09/23 Plan of Care End Date 01/20/24 Therapeutic Interventions Therapeutic Interventions Balance Training,Gait Training ,Home Exercise Program,Joint Mobilizations,Manual Therapy, Neuromuscular Re-education, Patient/Caregiver Education, Self-Care/Home Management, Sensory Integration,Soft Tissue Mobilization,Taping, Therapeutic Activities, Therapeutic Exercises Modalities Cold Pack/Ice Massage,Electric Stimulation,Hot Packs, Ultrasound Other Therapeutic Interventions pelvic realignment Next Visit Focus/Plan Next Note Type Treatment Note Next Visit Plan review tolerance to nerve glides Add femoral nerve glide. Hip strengthening: s/l abd, hip 3 way, LAQ, retrain TKE, calf stretch, squat retrain, STS/ squat/glute strength Manual: joint mobilizations to lumbar spine, STM to lumbar spine Education regarding posture
--- NOTE | 2023-11-11 12:57 | PT.OTN ---
Current Diagnoses Pain in left knee (11/11/23) Low back pain, unspecified (11/11/23) Weakness (11/11/23) Physical Therapy Treatment Note PT-OP-A Visit Information Start: 11/09/23 08:18 Freq: Status: Active Protocol: Document 11/11/23 07:33 NM (Rec: 11/11/23 08:16 NM [id number]) Out-Patient Physical Therapy Visit Information Visit Information Visit Type Treatment Note Visit Note 24 visits Visit Start Time 07:33 Visit Stop Time 08:13 Visit Number 07/30 PT-OP-B Current Condition Start: 11/09/23 08:18 Freq: Status: Active Protocol: Document 11/09/23 08:19 NM (Rec: 11/09/23 09:44 NM [id number]) Current Condition History of Current Condition Onset Date a month ago Current Complaints weakness, pain History of Current Condition Pt presents with L knee and back pain. She has tried ice, which helps. Pain radiates up from knee to low back. Her knees feel weak, like they want to buckle. Hyperextends knees, reports more conscious about standing. Knee pain is bilateral, but L>R. On her left side, she reports that her foot feels heavy and is louder. She does reports that her knees with buckle but has no falls (bilateral). Feels like water in the knees but denies increase in swelling or fluid sacs like bursa. Pt is in process of losing weight, walking and watching what she eats. Reports that her balance is off and she's had several falls, unsure what happened. 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 She has rolled out her legs and has iced, took some naproxen. Feels pulling behind L leg, almost like achy after a loretta horse. At end of session, pt reports that knees and back feel great . PT-OP-E Functional Tests Start: 11/09/23 08:18 Freq: Status: Active Protocol: Document 11/09/23 08:19 NM (Rec: 11/09/23 09:44 NM [id number]) Functional Tests Squat Test Score 5 Comments knee pain and crepitus w/ inc depth, inc trunk flex, dec DF Other Trunk Forward Flexion Test Name of Test measured finger tip to floor Score 4 Comment pain free but pulling PT-OP-F Manual Assessment Start: 11/09/23 08:18 Freq: Status: Active Protocol: Document 11/09/23 08:19 NM (Rec: 11/09/23 09:44 NM [id number]) Manual Assessments Soft Tissue Assessment Soft Tissue Mobility Assessment Increased tightness of L quad, hamstring. Increased L lumbar paraspinal tightness Joint Mobility Assessment Joint Mobility Assessment Increased joint laxity of B knees, hyperextension. Hypomobility with P-A springing of lumbar spine, pain free, reports feels good . Beighton score: 4/8 (knees, pinkies). L patellar laterally tracks throughout range PT-OP-G Mobility & Gait Start: 11/09/23 08:18 Freq: Status: Active Protocol: Document 11/09/23 08:19 NM (Rec: 11/09/23 09:44 NM [id number]) OP Gait Assessment Gait Gait Assistance Required: Independent Distance (Feet) 150 Gait Deviations General Gait Pattern Antalgic,Flexed Trunk Factors Limiting Gait Function Factors Limiting Gait Function Pain PT-OP-J Posture/Palpation/Skin Start: 11/09/23 08:18 Freq: Status: Active Protocol: Document 11/09/23 08:19 NM (Rec: 11/09/23 09:44 NM [id number]) Posture Evaluation Position Standing Head/C-Spine Posture Forward Head L-Spine Posture Flattened Knee Posture (L) Genu Valgus,(R) Genu Valgus,(L) Genu Recurvatum,(R) Genu Recurvatum Patellar Posture (L) Laterally Tilted Palpation Assessment Location back Palpation Details Increased muscle tightness along paraspinals Tender along QL, paraspinals ( L>R), piriformis, hamstring No midline or joint tenderness knees Palpation Details L knee tender along lateral distal hamstring, medial femoral condyle. No joint line tenderness Increased tightness of thigh muscles LLE PT-OP-K Range of Motion Start: 11/09/23 08:18 Freq: Status: Active Protocol: Document 11/09/23 08:19 NM (Rec: 11/09/23 09:44 NM [id number]) Lumbar Spine Range of Motion Lumbar Spine Active Percentage Flexion 90 Extension 100 Lateral Flexion Left 100 Lateral Flexion Right 100 Comments R lateral flexion reproduces L sided pain Hip Goniometric Range of Motion Hip Right Flexion w/Knee Flexed 110 Extension 10 Internal Rotation 28 External Rotation 30 Left Flexion w/Knee Flexed 105 Extension 10 Internal Rotation 30 External Rotation 30 Comments knee pain with rotation Knee Goniometric Range of Motion Knee Right Flexion Active (degrees) 126 Hyper-Extension Active 3 Comments HS length 170 deg Left Flexion Active (degrees) 135 Hyper-Extension Active 3 Comments HS length 155 deg Knee ROM Limitations Comments joint laxity PT-OP-L Special Tests Start: 11/09/23 08:18 Freq: Status: Active Protocol: Document 11/09/23 08:19 NM (Rec: 11/09/23 09:44 NM [id number]) Special Tests Lumbar Spine Special Tests Bowstring Test Results + Comments L Straight Leg Raise Test Results + Comments B Slump Test Results + Comments L Babin/Quadrant Test Results - Knee Special Tests Valgus Test Results + Comments pain free, but increased laxity at 0 and 25 deg Varus Test Results - B Comments 0 and 25 deg Posterior Drawer Test Results - B Enio Test Test Results - B Comments no joint line tenderness Moe's Test Results - B Neural Special Tests- Lower Body Femoral Nerve Tension Test Results + L PT-OP-M Strength Start: 11/09/23 08:18 Freq: Status: Active Protocol: Document 11/09/23 08:19 NM (Rec: 11/09/23 09:44 NM [id number]) Trunk Strength Trunk Manual Muscle Testing Flexion 4 Good Extension 4 Good Rotation Left 4 Good Rotation Right 4 Good Lateral Flexion Left 4 Good Lateral Flexion Right 4 Good Comments No pain with resisted testing Hip Strength Hip Manual Muscle Testing Right Flexion (L2) 4 Good Extension (S1) 4- Good- Abduction 4- Good- Adduction 4 Good External Rotation 4 Good Internal Rotation 4 Good Left Flexion (L2) 4 Good Extension (S1) 4- Good- Abduction 4- Good- Adduction 4 Good External Rotation 4 Good Internal Rotation 4 Good Knee Strength Knee Manual Muscle Testing Right Flexion (S2) 4+ Good+ Extension (L3) 4+ Good+ Left Flexion (S2) 4 Good Extension (L3) 4- Good- Comments hs PT-OP-Q Treatments Start: 11/09/23 08:18 Freq: Status: Active Protocol: Document 11/11/23 07:33 NM (Rec: 11/11/23 08:16 NM [id number]) Therapeutic Exercises Supine Exercises bridge Side bilateral Resistance level 2 band around thighs Reps/Minutes 2x10 Comments relieves pressure in back; pain free TrA activation Supine Exercise Name 1. breathing, 2. BKFO Side bilateral Reps/Minutes 1. 10 breaths, 2. 1x8 Comments cued draw belly button up/in; challenging LTR Supine Exercise Name for spinal mobility Side bilateral Reps/Minutes 60 with breathing Comments post manual tx nerve glide Supine Exercise Name sciatic nerve glide: knee flex /ext Side bilateral Reps/Minutes 60 ea Comments reports reduction in symptoms, tightness in legs Prone Exercises prone press up Reps/Minutes 10 Comments feels good, relieves symptoms; cued for form prone on elbows Reps/Minutes 30 Comments feels good, helps relieve back symptoms Standing Exercises side steps Side bilateral Resistance lvl 2 band above knees Reps/Minutes 2x20 ft Comments challenging; squat form, pain free but fatiguing, no knee or back pain Manual Therapy Treatment Soft Tissue Mobilization B thighs/calves Body Location glutes, hamstrings, lateral hip, calves Mobilization Type Instrument Assisted,Rolling Intensity/Depth Moderate Body Position Prone Comments Reports symptom and relief of muscle tightness, monitored for pain thoracolumbar spine Body Location paraspinals, QL Mobilization Type Oscillations,Rolling,Strumming Intensity/Depth Moderate Body Position Prone Comments Increased muscle tightness in paraspinals, reduced with soft tissue mobilization, good feedback to manual tx but still demonstrates stiffness Joint Mobilizations lumbar spine Joint L1-L5 Grade III Body Position Prone Reps/Duration 2x30 ea Comments Reports feels good like air released, good feedback to mobilization. Progressed from grade II to grade III based on pt feedback. Hypomobility of vertebrae. Educated on rationale Self-Care/Home Management Treatment Education Patient Education Home Exercise Program Other Education HEP: LTR, prone press up, bridging with band, side steps . Issued level 2 band PT-OP-T Assessment and Plan Start: 11/09/23 08:18 Freq: Status: Active Protocol: Document 11/11/23 07:33 NM (Rec: 11/11/23 08:16 NM [id number]) Physical Therapy Assessment Goals Six Impairment functional activities Impairment LEFS 56/80 Skilled Nursing Goal (LTG) Pt will improve LEFS score to at least 60/80 in order to demonstrate improved pain management and activity tolerance LTG Duration 10 weeks Five Impairment body mechanics Short Term Goal (STG) Pt will demonstrate good core bracing at least 8/10 reps using good form and without compensation in order to be able to perform job requirements STG Duration 5 weeks Commercial Lines Manager Goal (LTG) Pt will be able to perform at least 10 deadlifts with resistance using good form and without increase in baseline pain in order to be able to perform job requirements LTG Duration 10 weeks Four Impairment exercise/HEP Short Term Goal (STG) Pt will report compliance with HEP at least 3x/wk in order to maximize progression with PT and demonstrate independence on return to exercise STG Duration 5 weeks Skilled Nursing Goal (LTG) Pt will report that she is able to participate in HEP or independent exercise without increase in baseline pain at least 3x/wk in order to demonstrate transition to maintenance program and improved health habits overall LTG Duration 10 weeks Three Impairment strength Short Term Goal (STG) Pt will improve knee flexion and extension strength to at least 4/5 MMT in order to demonstrate improved strength for gait, job requirements STG Duration 5 weeks Skilled Nursing Goal (LTG) Pt will improve knee flexion and extension strength to at least 4+/5 MMT in order to demonstrate improved strength for gait, job requirements, and to be comparable to RLE LTG Duration 10 weeks Two Impairment body mechanics Short Term Goal (STG) Pt will be able to perform at least 10 bilateral squats without compensation or increase in baseline pain in order to demonstrate improved form, pain management, and body mechanics for work requirements STG Duration 5 weeks Skilled Nursing Goal (LTG) Pt will be able to perform at least 10 bilateral squats while picking up at least 20# without compensation or increase in baseline pain in order to demonstrate improved body mechanics and activity tolerance for work requirements LTG Duration 10 weeks One Impairment strength Impairment BLE hip abd/ext strength 4-/5 Short Term Goal (STG) Pt will increase BLE hip abd/ ext strength to at least 4/5 MMT in order to demonstrate improved strength for ambulation and work requirements STG Duration 5 weeks Commercial Lines Manager Goal (LTG) Pt will increase BLE hip abd/ ext strength to at least 4+/5 MMT in order to demonstrate improved strength for ambulation and work requirements LTG Duration 10 weeks Assessment Summary Assessment Pt tolerated session well with good feedback to therapuetic exercise and manual treatment. Initiated grade II-III mobilizations of lumbar spine and soft tissue mobilization of paraspinals and B hamstrings/glutes, which pt reports signficant symptom relief. Added extension-biased low back exercises for greater symptom reduction. Performed spinal mobility and hip strengthening for greater glute activation. Pt has good feedback to glute activation, ovreall symptom reduction. Would benefit from further glute and hip strengthening to lumbopelvic and knee stabilization. Pt would benefit from skilled PT for global strengthening and core bracing, in addition to body mechanics training for symptom reduction and to improve activity tolerance. Physical Therapy Plan Frequency and Duration Frequency of Treatment 1-2x/wk Duration of treatment (weeks) 10 Plan of Care Start Date 11/09/23 Plan of Care End Date 01/20/24 Therapeutic Interventions Therapeutic Interventions Balance Training,Gait Training ,Home Exercise Program,Joint Mobilizations,Manual Therapy, Neuromuscular Re-education, Patient/Caregiver Education, Self-Care/Home Management, Sensory Integration,Soft Tissue Mobilization,Taping, Therapeutic Activities, Therapeutic Exercises Modalities Cold Pack/Ice Massage,Electric Stimulation,Hot Packs, Ultrasound Other Therapeutic Interventions pelvic realignment Next Visit Focus/Plan Next Note Type Treatment Note Next Visit Plan Address back & knee (L>R), plan of care: hip and core strengthening Add femoral nerve glide if tolerated. Continue with TrA core bracing and progress as able. Lumbopelvic mobility on [place] ball. Create good HEP. Hip strengthening: s/l abd, hip 3 way, LAQ, retrain TKE, calf stretch, squat retrain, bridge>STS/squat/glute strength. cont extension bias as needed for LBP mgmt Manual: joint mobilizations to lumbar spine, STM to lumbar spine Education regarding posture
--- NOTE | 2023-11-23 07:48 | PT-OP ANOTE ---
Pt DNS for today's appt, upon chart review she cancelled last 2 appts via text connect. INFORMATION ASSURANCE OFFICER left voice message appreciated cancel in advance but wanting to help her progress care with attendance needed. Reminded of cancellation >50 % and no show no more than 2 policy otherwise required to DC, please give reason cancel if possible to support understanding unable to make appt. Reminded of next appt on 11/29/at 730.
--- NOTE | 2024-01-11 07:29 | PT.OPDS ---
Current Diagnoses Pain in left knee (11/11/23) Low back pain, unspecified (11/11/23) Weakness (11/11/23) Visit Care Team Role Provider Type Ant Marks MD Attending Provider Physician Family Provider Primary Care Provider Referring Provider Specialty: Family Practice Address: [address] [place] [address], [facility] [place], [address] Email: [email or web address] Visit Number Visit Number 07/30 Discharge Summary PT-OP-B Current Condition Start: 11/09/23 08:18 Freq: Status: Active Protocol: Document 11/09/23 08:19 NM (Rec: 11/09/23 09:44 NM [id number]) Current Condition History of Current Condition Onset Date a month ago Current Complaints weakness, pain History of Current Condition Pt presents with L knee and back pain. She has tried ice, which helps. Pain radiates up from knee to low back. Her knees feel weak, like they want to buckle. Hyperextends knees, reports more conscious about standing. Knee pain is bilateral, but L>R. On her left side, she reports that her foot feels heavy and is louder. She does reports that her knees with buckle but has no falls (bilateral). Feels like water in the knees but denies increase in swelling or fluid sacs like bursa. Pt is in process of losing weight, walking and watching what she eats. Reports that her balance is off and she's had several falls, unsure what happened. 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 She has rolled out her legs and has iced, took some naproxen. Feels pulling behind L leg, almost like achy after a loretta horse. At end of session, pt reports that knees and back feel great . PT-OP-E Functional Tests Start: 11/09/23 08:18 Freq: Status: Active Protocol: Document 11/09/23 08:19 NM (Rec: 11/09/23 09:44 NM [id number]) Functional Tests Squat Test Score 5 Comments knee pain and crepitus w/ inc depth, inc trunk flex, dec DF Other Trunk Forward Flexion Test Name of Test measured finger tip to floor Score 4 Comment pain free but pulling PT-OP-F Manual Assessment Start: 11/09/23 08:18 Freq: Status: Active Protocol: Document 11/09/23 08:19 NM (Rec: 11/09/23 09:44 NM [id number]) Manual Assessments Soft Tissue Assessment Soft Tissue Mobility Assessment Increased tightness of L quad, hamstring. Increased L lumbar paraspinal tightness Joint Mobility Assessment Joint Mobility Assessment Increased joint laxity of B knees, hyperextension. Hypomobility with P-A springing of lumbar spine, pain free, reports feels good . Beighton score: 4/8 (knees, pinkies). L patellar laterally tracks throughout range PT-OP-G Mobility & Gait Start: 11/09/23 08:18 Freq: Status: Active Protocol: Document 11/09/23 08:19 NM (Rec: 11/09/23 09:44 NM [id number]) OP Gait Assessment Gait Gait Assistance Required: Independent Distance (Feet) 150 Gait Deviations General Gait Pattern Antalgic,Flexed Trunk Factors Limiting Gait Function Factors Limiting Gait Function Pain PT-OP-J Posture/Palpation/Skin Start: 11/09/23 08:18 Freq: Status: Active Protocol: Document 11/09/23 08:19 NM (Rec: 11/09/23 09:44 NM [id number]) Posture Evaluation Position Standing Head/C-Spine Posture Forward Head L-Spine Posture Flattened Knee Posture (L) Genu Valgus,(R) Genu Valgus,(L) Genu Recurvatum,(R) Genu Recurvatum Patellar Posture (L) Laterally Tilted Palpation Assessment Location back Palpation Details Increased muscle tightness along paraspinals Tender along QL, paraspinals ( L>R), piriformis, hamstring No midline or joint tenderness knees Palpation Details L knee tender along lateral distal hamstring, medial femoral condyle. No joint line tenderness Increased tightness of thigh muscles LLE PT-OP-K Range of Motion Start: 11/09/23 08:18 Freq: Status: Active Protocol: Document 11/09/23 08:19 NM (Rec: 11/09/23 09:44 NM [id number]) Lumbar Spine Range of Motion Lumbar Spine Active Percentage Flexion 90 Extension 100 Lateral Flexion Left 100 Lateral Flexion Right 100 Comments R lateral flexion reproduces L sided pain Hip Goniometric Range of Motion Hip Right Flexion w/Knee Flexed 110 Extension 10 Internal Rotation 28 External Rotation 30 Left Flexion w/Knee Flexed 105 Extension 10 Internal Rotation 30 External Rotation 30 Comments knee pain with rotation Knee Goniometric Range of Motion Knee Right Flexion Active (degrees) 126 Hyper-Extension Active 3 Comments HS length 170 deg Left Flexion Active (degrees) 135 Hyper-Extension Active 3 Comments HS length 155 deg Knee ROM Limitations Comments joint laxity PT-OP-L Special Tests Start: 11/09/23 08:18 Freq: Status: Active Protocol: Document 11/09/23 08:19 NM (Rec: 11/09/23 09:44 NM [id number]) Special Tests Lumbar Spine Special Tests Bowstring Test Results + Comments L Straight Leg Raise Test Results + Comments B Slump Test Results + Comments L Babin/Quadrant Test Results - Knee Special Tests Valgus Test Results + Comments pain free, but increased laxity at 0 and 25 deg Varus Test Results - B Comments 0 and 25 deg Posterior Drawer Test Results - B Enio Test Test Results - B Comments no joint line tenderness Moe's Test Results - B Neural Special Tests- Lower Body Femoral Nerve Tension Test Results + L PT-OP-M Strength Start: 11/09/23 08:18 Freq: Status: Active Protocol: Document 11/09/23 08:19 NM (Rec: 11/09/23 09:44 NM [id number]) Trunk Strength Trunk Manual Muscle Testing Flexion 4 Good Extension 4 Good Rotation Left 4 Good Rotation Right 4 Good Lateral Flexion Left 4 Good Lateral Flexion Right 4 Good Comments No pain with resisted testing Hip Strength Hip Manual Muscle Testing Right Flexion (L2) 4 Good Extension (S1) 4- Good- Abduction 4- Good- Adduction 4 Good External Rotation 4 Good Internal Rotation 4 Good Left Flexion (L2) 4 Good Extension (S1) 4- Good- Abduction 4- Good- Adduction 4 Good External Rotation 4 Good Internal Rotation 4 Good Knee Strength Knee Manual Muscle Testing Right Flexion (S2) 4+ Good+ Extension (L3) 4+ Good+ Left Flexion (S2) 4 Good Extension (L3) 4- Good- Comments hs PT-OP-T Assessment and Plan Start: 11/09/23 08:18 Freq: Status: Active Protocol: Document 01/11/24 07:25 NM (Rec: 01/11/24 07:28 NM [id number]) Physical Therapy Assessment Goals Six Impairment functional activities Impairment LEFS 56/80 Trimmer Climber Goal (LTG) Pt will improve LEFS score to at least 60/80 in order to demonstrate improved pain management and activity tolerance LTG Duration 10 weeks Five Impairment body mechanics Short Term Goal (STG) Pt will demonstrate good core bracing at least 8/10 reps using good form and without compensation in order to be able to perform job requirements STG Duration 5 weeks Assisted Goal (LTG) Pt will be able to perform at least 10 deadlifts with resistance using good form and without increase in baseline pain in order to be able to perform job requirements LTG Duration 10 weeks Four Impairment exercise/HEP Short Term Goal (STG) Pt will report compliance with HEP at least 3x/wk in order to maximize progression with PT and demonstrate independence on return to exercise STG Duration 5 weeks Assisted Goal (LTG) Pt will report that she is able to participate in HEP or independent exercise without increase in baseline pain at least 3x/wk in order to demonstrate transition to maintenance program and improved health habits overall LTG Duration 10 weeks Three Impairment strength Short Term Goal (STG) Pt will improve knee flexion and extension strength to at least 4/5 MMT in order to demonstrate improved strength for gait, job requirements STG Duration 5 weeks Trimmer Climber Goal (LTG) Pt will improve knee flexion and extension strength to at least 4+/5 MMT in order to demonstrate improved strength for gait, job requirements, and to be comparable to RLE LTG Duration 10 weeks Two Impairment body mechanics Short Term Goal (STG) Pt will be able to perform at least 10 bilateral squats without compensation or increase in baseline pain in order to demonstrate improved form, pain management, and body mechanics for work requirements STG Duration 5 weeks Trimmer Climber Goal (LTG) Pt will be able to perform at least 10 bilateral squats while picking up at least 20# without compensation or increase in baseline pain in order to demonstrate improved body mechanics and activity tolerance for work requirements LTG Duration 10 weeks One Impairment strength Impairment BLE hip abd/ext strength 4-/5 Short Term Goal (STG) Pt will increase BLE hip abd/ ext strength to at least 4/5 MMT in order to demonstrate improved strength for ambulation and work requirements STG Duration 5 weeks Trimmer Climber Goal (LTG) Pt will increase BLE hip abd/ ext strength to at least 4+/5 MMT in order to demonstrate improved strength for ambulation and work requirements LTG Duration 10 weeks Assessment Summary Assessment Pt was evaluated in November for back and knee pain. She attended 1 visit following evaluation and canceled all remaining visits. Pt has not been seen in clinic since . She will be discharged from PT for non-attendance and will need new referral to return to PT. Physical Therapy Plan Frequency and Duration Frequency of Treatment 1-2x/wk Duration of treatment (weeks) 10 Plan of Care Start Date 11/09/23 Plan of Care End Date 01/20/24 Therapeutic Interventions Therapeutic Interventions Balance Training,Gait Training ,Home Exercise Program,Joint Mobilizations,Manual Therapy, Neuromuscular Re-education, Patient/Caregiver Education, Self-Care/Home Management, Sensory Integration,Soft Tissue Mobilization,Taping, Therapeutic Activities, Therapeutic Exercises Modalities Cold Pack/Ice Massage,Electric Stimulation,Hot Packs, Ultrasound Other Therapeutic Interventions pelvic realignment Discharge Physical Therapy Discharge Reasons No Longer Attending PT Discharge Comments Pt has not been seen in clinic since November 11, 2023. She has canceled 8 appointments. She has not responded to PT or office staff's attempts to reach out regarding appointments.Pt will be discharged from PT for non- compliance with attendance policy and will need new PT referral to return Next Visit Focus/Plan Next Visit Plan discharge from PT
== END 2024-01-13 08:54 ==
LOC: PHYS 07:30
PROVIDERS: Family Provider Family Medicine; PCP Family Medicine; Referring Provider Family Medicine; Visit Provider Family Medicine
DX: M25.562 Pain in left knee (principal); M54.50 Low back pain, unspecified; R53.1 Weakness
CPT/HCPCS: 97110; 97140; 97162